=== PATIENT | male | born 1955 | race Caucasian/White ===

== ENCOUNTER 2020-10-21 11:18 | Outpatient (CLI) | payer BC, SELFPAY ==
[2020-10-21 11:57] LABS: Basophils Absolute Auto 0.1 K/mm3 (0.0-0.1); Basophils Percent Auto 0.9 % (0.2-1.2); Eosinophils Absolute Auto 0.4 K/mm3 (0-0.3); Eosinophils Percent Auto 5.4 % (0-4.4); Hematocrit 53.5 % (42.0-52.0); Hemoglobin 18.3 g/dL (14.0-18.0); Immature Granulocyte Absolute 0.05 K/mm3 (0.00-0.031); Immature Granulocyte Percent A 0.7 % (0-0.5); Lymphocytes Absolute Auto 1.47 K/mm3 (0.9-3.2); Mean Corpuscular HGB Conc 34.2 g/dl (32-36); Mean Corpuscular Hemoglobin 31.4 pg (26-34); Mean Corpuscular Volume 91.9 fl (80-100); Mean Platelet Volume 9.7 fl (7.4-10.4); Monocytes Percent Auto 14.1 % (2.6-8.5); Neutrophils Absolute Auto 4.1 K/mm3 (1.3-6.7); Neutrophils Percent Auto 57.9 % (45.5-73.1); Platelet Count Result 178 k/mm3 (150-375); Red Blood Count 5.82 M/mm3 (4.6-6.20); Red Cell Distribution Width 13.4 % (11.5-14.5)
[2020-10-21 12:10] LABS: Alanine Aminotransferase 27 U/L (4-50); Albumin Level 4.4 g/dL (3.5-5.1); Alkaline Phosphatase 91 U/L (38-126); Amylase 99 U/L (30-110); Anion Gap 11 mmol/L (8-16); Aspartate Amino Transferase 28 U/L (17-59); Bilirubin,Total 2.1 mg/dL (0.2-1.3); Blood Urea Nitrogen 40 mg/dL (9-20); Calcium 9.7 mg/dL (8.4-10.2); Carbon Dioxide 25 mmol/L (22-30); Chloride 101 mmol/L (98-107); Estimated Glomerular Filt Rate > 60; Glucose 336 mg/dL (75-110); Lipase 463 U/L (23-300); Sodium 137 mmol/L (137-145)
== END 2020-10-21 11:19 | disposition home or self-care (01) ==
LOC: ANHSURGERY 11:20
PROVIDERS: PCP Family Medicine; Visit Provider Surgery
DX: Z01.818 Encounter for other preprocedural examination (principal); K80.10 Calculus of gallbladder with chronic cholecystitis without obstruction
CPT/HCPCS: 36415; 80053; 82150; 82248; 83690; 85025

== ENCOUNTER 2020-10-25 01:14 | Outpatient (CLI) | payer BC, SELFPAY ==
[2020-10-25 18:31] LABS: SARS-CoV-2 RNA PCR Negative
== END 2020-10-25 01:15 | disposition home or self-care (01) ==
LOC: ANHCOVIDDT 01:14
PROVIDERS: PCP Family Medicine; Visit Provider Surgery
DX: Z01.812 Encounter for preprocedural laboratory examination (principal); Z20.828 Contact with and (suspected) exposure to other viral communicable diseases
CPT/HCPCS: 87635; C9803; U0003

== ENCOUNTER 2020-10-28 05:15 | Day surgery (SDC) | payer BC, SELFPAY ==
[2020-10-14 14:07] VITALS: BMI 34.4
[2020-10-28] VITALS (8 sets, daily range): BP systolic 103–155; BP diastolic 72–101; PULSE 70–78; RESP 16–32; TEMP 36.1–36.5; O2SAT 92–97
[2020-10-28] MEDS: ACETAMINOPHEN 500 MG TABLET 1000 MG PO (09:02)
[2020-10-28 09:18] LABS: Glucose Point of Care 142 (65-105)
[2020-10-28] MEDS: LACTATED RINGERS 1,000 ML 30 ML IV CONT ×2 (09:19→13:30)
[2020-10-28] MEDS: KETOROLAC 15 MG/ML VIAL (*BKC) IV PUSH (09:20)
--- NOTE | 2020-10-28 10:07 | WPDANESEPPF ---
Anes - Initial Pre Proc Eval Procedure: Operation Date: 10/28/20 11:00 Proposed Procedures p Laparoscopic Cholecystectomy, Possible Intraoperative Cholangiogram, Possible Open - Uche Siddiqui MD Date/Time: 10/28/20 10:07 Surgeon: Uche Siddiqui MD Pre Op Diagnosis: Chronic Cholecystitis With Cholelithiasis Patient Data Age: 65 Gender: M Height: 5 ft 10 in Weight: 105.2 kg Last Vital Signs Temp 36.1 C L 10/28/20 09:25 Pulse 71 10/28/20 09:25 Resp 16 10/28/20 09:25 BP 106/79 10/28/20 09:25 Pulse Ox 93 10/28/20 09:25 Allergies Allergy/AdvReac Type Severity Reaction Status Date / Time No Known Allergies Allergy Verified 10/28/20 08:53 Home Medications Medication Instructions Recorded Confirmed Type allopurinol 100 mg tablet 100 mg PO DAILY 11/05/19 10/28/20 History aspirin 81 mg tablet,delayed 81 mg PO DAILY 11/05/19 10/28/20 History release sacubitril 24 mg-valsartan 26 mg 1 tablet PO BID 11/05/19 10/28/20 History tablet sitagliptin 100 mg tablet 100 mg PO DAILY #30 tablet 05/05/20 10/28/20 Rx apixaban 5 mg tablet 5 mg PO BID 05/28/20 10/28/20 History atorvastatin 10 mg tablet 10 mg PO DAILY #90 tablet 05/28/20 10/28/20 Rx levothyroxine 75 mcg tablet 75 mcg PO DAILY #30 tablet 08/20/20 10/28/20 Rx carvedilol 12.5 mg tablet 25 mg PO Q12H tablet 10/09/20 10/28/20 History metformin 500 mg tablet 1,000 mg PO BID #60 tablet 10/09/20 10/28/20 Rx ergocalciferol (vitamin D2) 50,000 unit PO WEEKLY 10/14/20 10/28/20 History Laboratory Tests 10/28/20 09:09 POC Capillary Glucose 142 mg/dl H mg/dl (65-105) Patient hx anesthesia problems: none Family hx anesthesia problems: none PMFSH Past Medical History Medical History A-fib Acquired hypothyroidism CAD (coronary artery disease) CHF (congestive heart failure) CKD (chronic kidney disease) Gout HLD (hyperlipidemia) HTN (hypertension) Type 2 diabetes mellitus with other diabetic kidney complication Surgical History Surgical History History of two vessel coronary artery bypass graft Family History Family History Father Patient's father is , Onset Age: 72 Family history of cardiovascular disease Mother Family history of arthritis Family history of Alzheimer's disease Sibling Family history of cardiovascular disease Social History Social History Smoking packs per day: 1 Smoking cigarettes per day: 20.0 Years smoked: 20 Smoking pack-years: 20.00 Smoking status: Former smoker Tobacco type: cigarettes Smoking end date: 11/28/11 Alcohol intake: never Substance use: never Substance use type: marijuana Last use: 2011 Living arrangements: alone Additional occupation/education comments: [employer] Gender identity (if verbalized by the patient): Male Sexual Orientation (if Verbalized by the Patient): Straight or Heterosexual Spiritual care concerns: No Anes - Eval Final PreProcedure Day of Procedure 10/28/20 10:07 Patient weight: obese Heart: regular rate and rhythm Lungs: clear to auscultation Airway: Mallampati scale class II Neurological: alert and oriented Last oral intake: >/= 8 hours Anesthetic plan: proceed Anesthesia type and monitoring: general ETT and standard monitoring Informed Consent: The patient's anesthetic plan and its attendant risks and benefits were discussed with the patient/family/POA. Questions were solicited and answers provided to the satisfaction of the patient/family/POA.
--- NOTE | 2020-10-28 11:11 | WPDHPUPDATE1 ---
History and Physical Update Update Date/Time: 10/28/20 11:11 History and Physical has been reviewed, including an updated exam of the patient. There are NO changes in the patient's condition. Risks, benefits, and alternatives have been discussed and questions answered. Patient agrees to proceed with procedure.
--- NOTE | 2020-10-28 11:15 | SUR.PREOP ---
Up to bathroom.
[2020-10-28] MEDS: ceFAZolin 2 GM/D5W 50 ML 2 GM/50 ML BAG IVPB (11:40)
[2020-10-28 14:00] LABS: Glucose Point of Care 189 (65-105)
--- NOTE | 2020-10-28 14:08 | PM.PROC ---
Procedure Note - Detailed Date of procedure: 10/28/20 Pre-op diagnosis: Chronic Cholecystitis With Cholelithiasis Chronic Cholecystitis with Cholelithiasis Post-op diagnosis: same Procedure performed: Laparoscopic Cholecystectomy Description of procedure: Patient was seen preoperatively in the holding area and risks, benefits and alternatives confirmed. Patient was taken to the operating room and general anesthesia was induced. A time out was then preformed with the surgery team confirming patient and site of surgery. The abdomen was prepped and draped in the usual sterile fashion. Incision was made just below the umbilicus with an 11 blade knife. I placed 2 stay sutures of O- Vicryl on either side of the mid-line fascia beneath the umbilicus and was then able to slide in the Tang cannula through the fascial defect into the peritoneum. First under low flow and then under high flow the abdomen was insufflated with carbon dioxide never exceeding a pressure of 14. Three 5 mm trocars were then introduced under direct vision. The following trocars were introduced under direct vision: a 5 mm in the epigastrium and two 5 mm trocars along the right costal margin laterally in the subcostal area. There wer no significant adhesions to the underside of the gallbladder. I then carefully used the L-shaped cautery and the [place] dissector to dissect out the triangle of [place]. I then was able to dissect out both the cystic duct and cystic artery and identify a window of safety. The gall bladder was grasped and the cystic duct and artery were dissected free and clipped with an 5 mm endo-clip well logger. The cystic duct and artery were clipped with use of 2 clips on the patient's side 1 on the gallbladder side utilizing a 5 mm endoclip-well logger. The cystic duct was then transected. The cystic artery was also transected at this point. As we dissected of the back Sal[place]o gallbladder a posterior branch of the cystic artery was identified and 2 clips placed on this and the artery DIS cut between them. 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 Upon removal of the gallbladder from the abdomen I also placed a long silk suture next to this marking the abnormal lesion. The gall bladder was removed using electrocautery and then removed from the abdomen using a large 10 mm grasper via the umbilical incision. In order to get the large stone out of the abdomen within the gallbladder I did make the fascial defect slightly larger with Powers scissors. The trocars were removed visualizing hemostasis and the remaining gas evacuated. The large trocar site at the umbilicus was closed with use of the 2 stay sutures of 0 Vicryl mentioned above and also 2 figure of 8 O-Vicryl sutures. The 2 stay sutures mentioned above on either side of the fascia were also tied together to help approximate this midline fascia. Further local anesthetic was placed into each incision for postop pain control. The skin incisions were closed with subcuticular suture of 4-0 Monocryl. Surgical glue then was applied to all the incisions. Patient tolerated the procedure well was taken to the recovery room in good condition. Anesthesia: SUKUMAR Surgeon: Uche Siddiqui MD Extractor Puller: Esther WYATT, OR hearing and speech assistant Estimated blood loss (mL): 30 Drains: No Packing: No Pathology: yes (Gallbladder) Complications: No immediate complications Condition: stable Disposition: PACU Findings: Large non inflamed gallbladder with an apparent 1 cm rounded nodule at its upper end along the liver margin to the medial side of the gallbladder.
== END 2020-10-28 15:30 | disposition home or self-care (01) ==
PROVIDERS: PCP Family Medicine; Visit Provider Surgery
PROC: 0FT44ZZ Resection of Gallbladder, Percutaneous Endoscopic Approach (ICD-10-PCS; CPT 47562; principal; 2020-10-28 11:00)
DX: K80.10 Calculus of gallbladder with chronic cholecystitis without obstruction (principal); D13.5 Benign neoplasm of extrahepatic bile ducts; I48.91 Unspecified atrial fibrillation; E03.9 Hypothyroidism, unspecified; I25.10 Atherosclerotic heart disease of native coronary artery without angina pectoris; I13.0 Hypertensive heart and chronic kidney disease with heart failure and stage 1 through stage 4 chronic kidney disease, or unspecified chronic kidney disease; N18.9 Chronic kidney disease, unspecified; E11.22 Type 2 diabetes mellitus with diabetic chronic kidney disease; I50.9 Heart failure, unspecified; E78.5 Hyperlipidemia, unspecified; M10.9 Gout, unspecified; Z79.01 Long term (current) use of anticoagulants; Z79.84 Long term (current) use of oral hypoglycemic drugs; Z95.1 Presence of aortocoronary bypass graft; Z87.891 Personal history of nicotine dependence; E66.9 Obesity, unspecified; Z68.33 Body mass index [BMI] 33.0-33.9, adult
CPT/HCPCS: 47562; 88304; A9270; J0690; J1100; J1885; J2250; J2370; J2405; J2704; J3010; J7120; Q9966

== ENCOUNTER → 2021-07-03 07:12 | Outpatient (CLI) | payer BC, SELFPAY ==
[2021-07-04 00:14] LABS: SARS-CoV-2 RNA PCR Negative
== END ==
PROVIDERS: PCP Family Medicine; Visit Provider Physician Assistant
DX: Z20.822 Contact with and (suspected) exposure to COVID-19 (principal); R05 Cough
CPT/HCPCS: C9803; U0003; U0005

== ENCOUNTER 2022-08-23 00:16 | Day surgery (SDC) | payer MEDICARE, SELFPAY ==
[2022-08-20 14:16] VITALS: BMI 36.3
[2022-08-23] VITALS (9 sets, daily range): BP systolic 90–107; BP diastolic 68–89; PULSE 76–107; RESP 16–34; TEMP 36.8; O2SAT 91–95; BMI 34.3
--- NOTE | 2022-08-23 | ECHO_ITS ---
Patient Info Name: Lance Gray Age: 67 years : 1955 Gender: Male Ht: 70 in Wt: 239 lbs BSA: 2.35 m2 HR: 96 bpm Heart Rhythm: Sinus Rhythm Exam Date: 08/23/2022 8:12 AM Exam Location: [facility] Patient Status: Outpatient Admit Date: 08/23/2022 Staff Ordering Physician: Cornell Wild MD Christmas Tree Farm Manager: ALEX Attending Provider: Cornell Wild MD Referring Physician: Junito ALLEN; Exam Type: CA echo transesophageal Study Info Indications I48.1 - Persistent atrial fibrillation Complete two-dimensional, color flow and Doppler transesophageal study is performed. Summary 1. Esophageal ECHO performed prior to cardioversion shows no evidence of left atrial thrombus. 2. Four-chamber dilation with significantly depressed left ventricular systolic function. Left Ventricle Left ventricular chamber dimension is moderately enlarged. Left ventricular systolic function is severely reduced with an ejection fraction by Biplane Method of Discs of Empty. Right Ventricle Right ventricular chamber dimension is moderately enlarged. Left Atria Left atrial chamber dimension is moderately enlarged. There is no thrombus visualized in the left atrium. Right Atria Right atrial chamber dimension is severely enlarged. Atrial Appendage There is no thrombus visualized in the left atrial appendage. Aortic Valve The aortic valve is not well visualized. Pulmonic Valve The pulmonic valve is not well visualized. Mitral Valve The mitral valve has normal leaflets. Tricuspid Valve The tricuspid valve leaflets are normal. Pericardium/Pleural The pericardium appears normal. Inferior Vena Cava Not well visualized inferior vena cava with Empty collapse upon inspiration consistent with Empty right atrial pressure, Empty. Aorta The aortic root size at the sinus of Valsalva is not well visualized. Report Signatures
--- NOTE | 2022-08-23 07:00 | ECG_ITS ---
Measurements Intervals [place] Rate: 84 P: 33 WA: 165 QRS: -29 QRSD: 146 T: -6 QT: 426 QTc: 504 Interpretive Statements SINUS RHYTHM ATRIAL PREMATURE COMPLEXES RIGHT BUNDLE BRANCH BLOCK INFERIOR INFARCT, AGE INDETERMINATE ABNORMAL ECG COMPARED TO ECG 08/23/2022 07:17:32 SINUS RHYTHM NOW PRESENT Electronically Signed On 08-23-2022 9:06:01 CDT by Ermias Martínez D.O.
[2022-08-23 07:47] LABS: Anion Gap 16 mmol/L (8-16); Blood Urea Nitrogen 27 mg/dL (9-20); Carbon Dioxide 19 mmol/L (22-30); Chloride 106 mmol/L (98-107); Estimated CRCL calculation 58 ml/min; Estimated Glomerular Filt Rate 51; Glucose 153 mg/dL (65-110); Magnesium 1.5 mg/dL (1.6-2.3); Potassium 4.4 mmol/L (3.4-5.0); Sodium 141 mmol/L (137-145)
--- NOTE | 2022-08-23 08:30 | ECG_ITS ---
Measurements Intervals [place] Rate: 107 P: OR: 0 QRS: -33 QRSD: 142 T: -11 QT: 393 QTc: 526 Interpretive Statements ATRIAL FLUTTER/TACHYCARDIA WITH RAPID VENTRICULAR RESPONSE LEFT AXIS DEVIATION RIGHT BUNDLE BRANCH BLOCK BASELINE ARTIFACT- I, II, AVR, AVL, AVF, V1 ABNORMAL ECG COMPARED TO ECG 06/29/2019 11:16:01 ATRIAL FLUTTER/TACHYCARDIA NOW PRESENT Electronically Signed On 08-23-2022 7:58:56 CDT by Ermias Martínez D.O.
--- NOTE | 2022-08-23 08:38 | WPDMODSED ---
Moderate Sedation Note-Pt Data Patient Data Diagnosis: Atrial flutter Coronary artery disease Left ventricular dysfunction Present Complaint: No complaints this morning Procedure to be performed/Plan: Cody/cardioversion Allergies Allergy/AdvReac Type Severity Reaction Status Date / Time No Known Allergies Allergy Verified 08/23/22 07:24 Home Medications Medication Instructions Recorded Confirmed Type allopurinol 100 mg tablet 100 mg PO DAILY 11/05/19 08/23/22 History aspirin 81 mg tablet,delayed 81 mg PO DAILY 11/05/19 08/23/22 History release (Adult Aspirin Regimen) sacubitril 24 mg-valsartan 26 mg 1 tablet PO BID 11/05/19 08/23/22 History tablet (Entresto) apixaban 5 mg tablet (Eliquis) 5 mg PO BID 05/28/20 08/23/22 History carvedilol 12.5 mg tablet 25 mg PO Q12H 10/09/20 08/23/22 History ergocalciferol (vitamin D2) 1,250 50,000 unit PO MONTHLY 10/14/20 08/23/22 History mcg (50,000 unit) capsule blood sugar diagnostic #100 ea 03/26/21 05/10/22 Rx blood sugar diagnostic (Contour #100 ea 03/27/21 05/10/22 Rx Next Test Strips) lancets #200 ea 03/27/21 05/10/22 Rx empagliflozin 25 mg tablet 25 mg PO DAILY #30 tabs 01/04/22 08/23/22 Rx levothyroxine 88 mcg tablet 88 mcg PO DAILY #90 tabs 01/04/22 08/23/22 Rx glipizide 5 mg tablet 5 mg PO BID #180 tabs 06/03/22 08/23/22 Rx metformin 1,000 mg tablet 1,000 mg PO BID #180 tabs 06/03/22 08/23/22 Rx sitagliptin 100 mg tablet (Januvia) 100 mg PO DAILY #30 tabs 07/05/22 08/23/22 Rx atorvastatin 10 mg tablet 10 mg PO DAILY 08/20/22 08/23/22 History Current Medications: Active Medications Sodium Chloride (Normal Saline Iv) 1,000 mls @ 30 mls/hr IV CONT .Q24H RAMÍREZ Sedation/Anesthesia: No previous sedation/anesthesia problems (including family history). [facility] Past Medical History Medical History A-fib Acquired hypothyroidism CAD (coronary artery disease) CHF (congestive heart failure) CKD (chronic kidney disease) Gout HLD (hyperlipidemia) HTN (hypertension) Obesity Type 2 diabetes mellitus with other diabetic kidney complication Surgical History Surgical History History of two vessel coronary artery bypass graft Hx laparoscopic cholecystectomy Family History Family History Father Patient's father is , Onset Age: 72 Family history of cardiovascular disease Mother Family history of arthritis Family history of Alzheimer's disease Sibling Family history of cardiovascular disease Social History Social History Smoking packs per day: 1 Smoking cigarettes per day: 20.0 Years smoked: 20 Smoking pack-years: 20.00 Smoking status: Former smoker Tobacco type: cigarettes Smoking end date: 11/28/11 Alcohol intake: never Substance use: former Substance use type: does not use Last use: 2011 Living arrangements: alone Additional occupation/education comments: [employer] Gender identity (if verbalized by the patient): Male Sexual Orientation (if Verbalized by the Patient): Straight or Heterosexual Spiritual care concerns: No Mod Sed Physical Exam Physical Exam Pre Procedural Exam: Normal: Nose, Neck, Throat, Airway, Lungs, Heart Size, Heart Rhythm (Atrial flutter), Neuro Exam and Extremities and Variation: Appearance (Obese white male no distress) and Heart Rate (Heart rate 115 and regular) Hours since solid foods: 12 Hours since liquid intake: 12 Mallampati Classification: class III Internal Medicine - PN: Obj Da Vital Signs Vital Signs: Vital Signs - 24 hr 08/23/22 07:30 Temperature 36.8 C Pulse Rate 107 H Respiratory Rate 20 Blood Pressure 106/89 Pulse Oximetry 92 Oxygen Delivery Room Air Meds/Results Medications: Active Medications Generic Name Dose Route Start Last Admin
--- NOTE | 2022-08-23 08:53 | WPDCARDPROC ---
Cardiac Cath Procedure Note Date of procedure:: 08/23/22 Performing physician:: Cornell Wild MD Indication:: Persistent atrial flutter Brief clinical history:: This is a 67-year-old man with coronary disease and left ventricular systolic dysfunction who has been in atrial flutter in a sustained fashion. Electrophysiology school plant consultant has recommended CODY/cardioversion Procedure Procedure performed:: Cody/cardiac Sedation/Medication given:: Propofol total dosage of 40 mg Estimated blood loss:: No blood loss Procedure note:: Patient was brought to the cardiac catheterization lab holding area in the postabsorptive state defibrillator patches were placed in the AP position. Oral up benzocaine was sprayed on the oropharynx for topical anesthesia. He then was sedated with a bolus of propofol 1 bolus of propofol 40 mg provided very good procedural sedation. Transesophageal echo probe was then placed and esophagus was easily intubated the a left atrium was inspected including the appendage the left atrium is moderately dilated there was no evidence of any thrombus in the atrium or the appendage. Following this the CODY probe was withdrawn and the patient was cardioverted with 200 joules in a synchronized fashion which restored normal sinus rhythm. Findings:: As above Conclusion:: Successful uncomplicated CODY/cardioversion after no left atrial thrombus was seen 200 joule synchronized shock x1 restored normal sinus rhythm. Cornell Wild MD [facility]
== END 2022-08-23 10:00 | disposition home or self-care (01) ==
PROVIDERS: PCP Family Medicine; Visit Provider Specialist
PROC: 5A2204Z Restoration of Cardiac Rhythm, Single (ICD-10-PCS; principal; 2022-08-23 08:30)
PROC: (CPT 93312; 2022-08-23 08:30)
DX: I48.19 Other persistent atrial fibrillation (principal); E03.9 Hypothyroidism, unspecified; I25.10 Atherosclerotic heart disease of native coronary artery without angina pectoris; I13.0 Hypertensive heart and chronic kidney disease with heart failure and stage 1 through stage 4 chronic kidney disease, or unspecified chronic kidney disease; I50.9 Heart failure, unspecified; E11.22 Type 2 diabetes mellitus with diabetic chronic kidney disease; N18.9 Chronic kidney disease, unspecified; M10.9 Gout, unspecified; E78.5 Hyperlipidemia, unspecified; Z79.82 Long term (current) use of aspirin; Z79.01 Long term (current) use of anticoagulants; Z79.84 Long term (current) use of oral hypoglycemic drugs; Z95.1 Presence of aortocoronary bypass graft; Z87.891 Personal history of nicotine dependence
CPT/HCPCS: 36415; 80048; 83735; 92960; 93312; 93320; 93325; J2704; J7030

== ENCOUNTER 2023-07-11 08:03 | Inpatient (IN) | payer MEDICARE, OTHER, SELFPAY ==
[2023-07-11] VITALS (60 sets, daily range): BP systolic 71–109; BP diastolic 54–79; PULSE 71–173; RESP 16–41; TEMP 36.2–36.8; O2SAT 4–95; BMI 33.6
--- NOTE | 2023-07-11 | ECHO_ITS ---
Patient Info Name: Lance Gray Age: 67 years : 1955 Gender: Male Ht: 70 in Wt: 234 lbs BSA: 2.32 m2 HR: 133 bpm BP: 92 / 65 mmHg Heart Rhythm: Sinus Rhythm Technical Quality: Fair Exam Date: 07/11/2023 3:31 PM Exam Location: [facility] Pul[facility] Exam Room: ICU8 Patient Status: Inpatient Admit Date: 07/11/2023 Staff Ordering Physician: Usama Chandler MD Farm Reporter: Lian Hernandez RDCS Attending Provider: Ramsey Tee MD Referring Physician: Ramesh PINTO; Exam Type: CA echo dop color flow w con Study Info Indications - CAD CABG AFIB RVR CHF Complete two-dimensional, color flow and Doppler transthoracic echocardiogram is performed with contrast to opacify the left ventricle and to improve the deliniation of the left ventricle endocardial borders. Contrast/Agitated Saline Contrast/Ag. Saline: Definity Amount: 2.00 ml Administered By: Lian Hernandez [facility] Existing IV Access: Yes IV Access Condition: patent with no signs of infiltration Summary 1. Technically difficult exam, definity contrast used to improve visualization. 2. Four-chamber cardiac dilation. 3. Severe left ventricular systolic dysfunction. 4. Severe right ventricular systolic dysfunction. 5. Biatrial dilation. 6. Mild MR. 7. [id number] tricuspid regurgitation. Left Ventricle Left ventricular chamber dimension is moderately enlarged. Left ventricular systolic function is severely reduced, estimated at 20-25%. The left ventricular diastolic function is grade I diastolic dysfunction. Right Ventricle Right ventricular chamber dimension is moderately enlarged. Right ventricular systolic function is reduced. Left Atria Left atrial chamber dimension is moderately enlarged. Right Atria Right atrial chamber dimension is moderately enlarged. Aortic Valve The aortic valve is normal. Pulmonic Valve The pulmonic valve is not well visualized. Mitral Valve The mitral valve has normal leaflets. There is mild mitral valve regurgitation. Tricuspid Valve The tricuspid valve leaflets are normal. There is mild to moderate tricuspid valve regurgitation. Pericardium/Pleural The pericardium appears normal. Aorta The aortic root size at the sinus of Valsalva is normal. Left Ventricular Outflow Tract Name Value Normal LVOT 2D LVOT Diameter 2.08 cm LVOT Doppler LVOT Peak Gradient 1 mmHg LVOT Mean Gradient 1 mmHg LVOT VTI 9.30 cm LVOT VTI/AV VTI Ratio 0.84 LVOT Stroke Volume 31.65 ml Pulmonic Valve Name Value Normal PV Doppler PV Peak Gradient 1 mmHg Mitral Valve Name Value Normal
--- NOTE | ~2023-07-11 | XR_ITS ---
EXAMINATION: XR chest 1V portable INDICATION: Shortness of breath TECHNIQUE: Portable AP chest at 0843 hours COMPARISON: 06/27/2019 FINDINGS: Cardiomegaly is noted. There is a mild diffuse interstitial pattern. Small pleural effusion s are suggested. There is no pneumothorax. Median sternotomy wires are consistent with prior cardiac surgery. IMPRESSION: 1. Cardiomegaly with mild pulmonary edema. 2. Probable small pleural effusions. Reviewed, dictated and finalized at location B.
--- NOTE | ~2023-07-11 | US_ITS ---
EXAMINATION: US renal BI DATE: 07/12/2023 10:50 INDICATION: Acute renal insufficiency TECHNIQUE: Multiple ultrasound grayscale images of the kidneys were obtained. COMPARISON: CT dated 05/17/2019 FINDINGS: The right kidney measures 10.5 x 6.8 x 5.7 exclusive of a simple appearing anechoic 8.2 cm exophytic cyst arising from the upper pole. There is an additional smaller 1.7 cm cyst at the lower pole. The l eft kidney measures 10.9 x 7.3 x 5.4 cm. The kidneys demonstrate normal echogenicity. There are coupl e additional anechoic left renal cysts measuring 3.5 similar and 1.8 cm in maximal diameters. There i s no hydronephrosis in either kidney. No stones identified. The bladder is normal with bilateral ure teral jets visualized on color Doppler. IMPRESSION: 1. Bilateral renal cysts. Otherwise normal kidneys without hydronephrosis. Reviewed, dictated and finalized at location A.
--- NOTE | ~2023-07-11 | XR_ITS ---
EXAMINATION: XR chest 1V portable DATE: 07/12/2023 05:30 INDICATION: Pulmonary edema. TECHNIQUE: A single frontal view of the chest was obtained. COMPARISON: Chest single view 07/11/2023, chest CT 05/17/2019 FINDINGS: There is an interstitial pattern in the lungs. There are airspace opacities in left midlung zone. No pleural effusion or pneumothorax. Cardiomegaly is noted. Median sternotomy wires are noted. IMPRESSION: 1. Diffuse lung disease, likely mild pulmonary edema and left-sided atelectasis versus pneumonia. 2. Cardiomegaly. Reviewed, dictated and finalized at location A.
--- NOTE | ~2023-07-11 | XR_ITS ---
EXAMINATION: XR chest 2V DATE: 07/14/2023 11:24 INDICATION: Shortness of breath TECHNIQUE: AP and lateral views of the chest are obtained. COMPARISON: 07/12/2023 FINDINGS: Diffuse interstitial opacities persist with slight improvement. No pleural effusion or pneu mothorax. Cardiomegaly is noted. There is mild thoracic spondylosis. Median sternotomy wires , consis tent with prior cardiac surgery IMPRESSION: 1. Diffuse lung disease with slight improvement, likely pulmonary edema versus pneumonia. 2. Cardiomegaly. Reviewed, dictated and finalized at location L.
--- NOTE | 2023-07-11 08:19 | ECG_ITS ---
Measurements Intervals [place] Rate: 89 P: PA: 0 QRS: -10 QRSD: 144 T: 76 QT: 431 QTc: 527 Interpretive Statements ATYPICAL/SLOW ATRIAL TACHYCARDIA VERSES SLOW ATRIAL FLUTTER WITH TWO-TO-ONE CONDUCTION. OCCASIONAL PVC INDETERMINATE AXIS RIGHT BUNDLE BRANCH BLOCK [120+ ms QRS DURATION, UPRIGHT V1, 40+ ms S IN I/aVL/V4/V5/V6] COMPARED TO ECG 08/23/2022 09:03:18 SINUS RHYTHM IS REPLACED BY ECTOPIC ATRIAL TACHYCARDIA/SLOW ATRIAL FLUTTER Electronically Signed On 07-11-2023 16:59:44 CDT by Cornell Wild M.D.
--- NOTE | 2023-07-11 08:31 | PC.NURSE ---
Pt noted to be in vtach on classroom monitor. Pt is asymptomatic.
--- NOTE | 2023-07-11 08:43 | PC.NURSE ---
0831: library monitor displaying VTach. Pt denies any chest pain. Dr. Phillips informed
[2023-07-11 08:44] LABS: Basophils Absolute Auto 0.1 K/mm3 (0.0-0.1); Basophils Percent Auto 1.1 % (0.2-1.2); Eosinophils Absolute Auto 0.3 K/mm3 (0-0.3); Eosinophils Percent Auto 5.2 % (0-4.4); Hematocrit 46.6 % (42.0-52.0); Hemoglobin 15.3 g/dL (14.0-18.0); Immature Granulocyte Absolute 0.03 K/mm3 (0.00-0.031); Immature Granulocyte Percent A 0.5 % (0-0.5); Lymphocytes Absolute Auto 0.97 K/mm3 (0.9-3.2); Lymphocytes Percent Auto 17.5 % (18.3-44.2); Mean Corpuscular HGB Conc 32.8 g/dl (32-36); Mean Corpuscular Hemoglobin 33.5 pg (26-34); Mean Platelet Volume 10.5 fl (7.4-10.4); Monocytes Absolute Auto 0.7 K/mm3 (0.1-0.6); Monocytes Percent Auto 12.3 % (2.6-8.5); Neutrophils Absolute Auto 3.5 K/mm3 (1.3-6.7); Neutrophils Percent Auto 63.4 % (45.5-73.1); Platelet Count Result 155 k/mm3 (150-375); Red Blood Count 4.57 M/mm3 (4.6-6.20); Red Cell Distribution Width 15.5 % (11.5-14.5); White Blood Count 5.5 K/mm3 (4.5-10.0)
[2023-07-11 08:55] LABS: Alanine Aminotransferase 19 U/L (6-50); Alkaline Phosphatase 94 U/L (38-126); Anion Gap 9 mmol/L (8-16); Aspartate Amino Transferase 24 U/L (17-59); Bilirubin,Total 2.3 mg/dL (0.2-1.3); Blood Urea Nitrogen 64 mg/dL (9-20); Calcium 8.8 mg/dL (8.4-10.2); Carbon Dioxide 18 mmol/L (22-30); Chloride 105 mmol/L (98-107); Estimated CRCL calculation 64 ml/min; Estimated Glomerular Filt Rate 32; Glucose 141 mg/dL (65-110); INR 2.1; Potassium 4.8 mmol/L (3.4-5.0); Prothrombin Time 24.6 Seconds (11.1-14.7); Sodium 132 mmol/L (137-145)
[2023-07-11 08:56] LABS: Partial Thromboplastin Time 35.9 SECONDS (22.3-36.8)
[2023-07-11 09:07] LABS: NT Pro B Type Natriuretic Pept 4850 pg/mL (19.9-100); Troponin I < 0.012 ng/mL (0.000-0.034)
[2023-07-11] MEDS: FUROSEMIDE INJ 40 MG/4 ML VIAL IV PUSH (09:21)
--- NOTE | 2023-07-11 09:22 | ED.SOB ---
HPI - SOB/Dyspnea General Chief Complaint: Shortness of Breath/Dyspnea Stated Complaint: sob for a couple weeks Time Seen by Provider: 07/11/23 08:10 History of Present Illness HPI Narrative: Patient is a 67-year-old male who presents ER with shortness of breath. Ongoing for 2 weeks. Patient was barely able to walk from parking lot to the hospital. Denies chest pain or chest pressure. He is short of breath with laying down. Has history of heart failure. He reports compliance with home medications and took his carvedilol this morning. Denies any dizziness or loss consciousness. Had no fevers or chills. Related Data Home Medications Medication Instructions Recorded Confirmed aspirin 81 mg tablet,delayed 81 mg PO DAILY 11/05/19 07/11/23 release (Adult Aspirin Regimen) apixaban 5 mg tablet (Eliquis) 5 mg PO BID 05/28/20 07/11/23 ergocalciferol (vitamin D2) 1,250 50,000 unit PO MONTHLY 10/14/20 07/11/23 mcg (50,000 unit) capsule allopurinol 100 mg tablet 200 mg PO HS 05/05/23 07/11/23 atorvastatin 10 mg tablet 10 mg PO HS 07/11/23 07/11/23 carvedilol 25 mg tablet 25 mg PO Q12H 07/11/23 07/11/23 sacubitril 49 mg-valsartan 51 mg 1 tablet PO BID 07/11/23 07/11/23 tablet (Entresto) sitagliptin phosphate 100 mg 100 mg PO DAILY 07/11/23 07/11/23 tablet (Januvia) Allergies Allergy/AdvReac Type Severity Reaction Status Date / Time No Known Allergies Allergy Verified 05/05/23 14:59 Review of Systems Review of Systems: All systems reviewed & are unremarkable except as noted in HPI and below Constitutional: Constitutional: Denies chills and Denies fever(s) ENT: Denies nasal congestion and Denies sore throat Cardiovascular: Cardiovascular: Denies chest pain, Denies rapid heart rate and Denies radiating jaw, neck or arm pain Respiratory: Respiratory: Reports cough and Reports dyspnea Gastrointestinal: Gastrointestinal: Denies abdominal pain, Denies nausea and Denies vomiting PMFSH Past Medical History Medical History Acquired hypothyroidism Chronic anticoagulation Chronic kidney disease Gout Heart failure with reduced ejection fraction Hyperlipidemia Hypertension Obesity Paroxysmal atrial fibrillation Shingles Type 2 diabetes mellitus Type 2 diabetes mellitus with other diabetic kidney complication Surgical History Surgical History History of laparoscopic cholecystectomy (2020) History of two vessel coronary artery bypass graft Family History Family History Father Family history of cardiovascular disease Patient's father is , Onset Age: 72 Mother Family history of arthritis Family history of Alzheimer's disease Sibling Family history of cardiovascular disease Parkinsons disease Social History Social History Social History: Surrogate medical decision maker: Padmaja Gray, sister. Code status: Full code. Smoking packs per day: 1 Smoking cigarettes per day: 20.0 Years smoked: 20 Smoking pack-years: 20.00 Smoking status: Former smoker Tobacco type: cigarettes Smoking end date: 11/28/11 Alcohol intake: never Substance use: never Substance use type: does not use Last use: 2011 Lack of Transportation: No Lack of Food: Never True Current Housing: I Have Housing Concerned About Future Housing: No Difficulty Paying Gas/Electric Bills: No Difficulty Paying for Meds: No Currently Unemployed: No Education: High School Diploma/GED Difficulty w/ Childcare or Family Care: No Living arrangements: alone Occupation/Education: occupation Additional occupation/education comments: [employer] Spiritual care concerns: Yes ([facility] in [place], [place]) Exam Narrative: GENERAL: Chronically ill-appearing, well-n
--- NOTE | 2023-07-11 09:56 | PC.NURSE ---
Pt continues to have episodes of asymptomatic VTach. Dr. Phillips aware of hypotension.
[2023-07-11] MEDS: AMIODARONE 150 MG/D5W 100 ML 150 MG/100 ML BAG 600 MG IV CONT (10:06)
[2023-07-11] MEDS: AMIODARONE 360 MG/D5W 200 ML 360 MG/200 ML BAG 33.33 MG IV CONT ×3 (10:24→22:45)
--- NOTE | 2023-07-11 11:10 | PC.NURSE ---
Report received via telephone at 1042 per YOSELIN Sharma. All questions answered and plan of care reviewed. Patient to go to ICU room 8.
--- NOTE | 2023-07-11 11:12 | ADMGEN ---
This patient, Lance Gray, was admitted to Intensive Care Unit-8 at 1102. Patient/family oriented to hospital policies and general routines including ID bracelet, bed and alarms, visiting hours, pain management, procedures, bathroom and other care routines, personal items, smoking policy, room service/diet, and visiting hours. Information on how to activate the Rapid Response Team has been discussed. Patient/Family are encouraged to report perceived risks to care and to ask questions if they do not understand what they are told or what they should do.
--- NOTE | 2023-07-11 12:33 | WPDCNINT ---
Assessment and Plan Assessment and plan (1) A-fib: Code(s): I48.91 - Unspecified atrial fibrillation Status: Acute Assessment and Plan: 07/11: Patient presented to the ER with Sinus tachycardia to AFib RVR with increasing shortness of breath. Chest x-ray showed pulmonary edema, elevated proBNP -started on amiodarone bolus and amiodarone infusion infusion -cardiology has been consulted -patient has been on Eliquis at home, will continue -patient has had history of cardioversion for similar symptoms in the past -will discuss with Cardiology regarding cardioversion if patient is persistently tachycardic (2) CHF (congestive heart failure): Code(s): I50.9 - Heart failure, unspecified Status: Acute Assessment and Plan: Chest x-ray shows phone edema, elevated proBNP -received Lasix in the ER -patient has not had any urine output -continues to require supplemental oxygen -will hold Entresto and Coreg due to borderline blood pressures -will diurese as needed (3) Acute kidney injury superimposed on chronic kidney disease: Code(s): N17.9 - Acute kidney failure, unspecified; N18.9 - Chronic kidney disease, unspecified Status: Acute Assessment and Plan: Acute kidney injury most likely related to volume overload, he AFib RVR/sinus tachycardia/SVT -patient has received Lasix in the ER -will monitor urine output, renal function remained electrolyte (4) DM renal manif type II: Code(s): E11.29 - Type 2 diabetes mellitus with other diabetic kidney complication Status: Acute Assessment and Plan: Will add Accu-Cheks and sliding scale insulin (5) HTN (hypertension): Code(s): I10 - Essential (primary) hypertension Status: Acute Assessment and Plan: Blood pressures are borderline, will continue to hold antihypertensive (6) HLD (hyperlipidemia): Code(s): E78.5 - Hyperlipidemia, unspecified Status: Acute Assessment and Plan: Continue statin (7) Hypothyroidism: Code(s): E03.9 - Hypothyroidism, unspecified Status: Acute Assessment and Plan: Will continue levothyroxine Plan DVT prophylaxis: Eliquis Stress ulcer prophylaxis: Not indicated Nutrition: Heart healthy diet Code Status: Full code Critical Care Time Spent: 48 minutes I did discuss with the patient and updated with his condition and plan of care, I answered all questions Due to a high probability of clinically significant, life threatening deterioration, the patient required my highest level of preparedness to intervene emergently and I personally spent this critical care time directly and personally managing the patient. This critical care time included obtaining a history; examining the patient; pulse oximetry; ordering and review of studies; arranging urgent treatment with development of a management plan; evaluation of patient's response to treatment; frequent reassessment; and discussions with other providers. It was exclusive of separately billable procedures and treating other patients and teaching time. Please see Assessment and Plan section and the rest of the note for further information on patient assessment and treatment This dictation may have been done utilizing a voice recognition system. Attempts have been made to correct errors. However, there may be uncorrected grammatical, spelling, and recognitions errors present. Stem Setter Consult Note Consult date: 07/11/23 Reason for consult: Shortness of breath, palpitations, sinus tachycardia/SVT HPI: Lance Gray is a 67 year old male with past medical history of atrial fibrillation on Eliquis at home, hypothyroidism, CHF, chronic kidney disease, coronary artery disease, CABG x2, hyperlipidemia, essential hypertension, type 2 diabetes, gout presented the ED on 07/11/2023 with complains of increasing shortness of breath and palpitations for 7-10 days. Patient states that he was morning is back ad
--- NOTE | 2023-07-11 14:20 | PM.CNCAR ---
Assessment and Plan Assessment and plan (1) CHF (congestive heart failure): Code(s): I50.9 - Heart failure, unspecified Status: Acute Assessment and Plan: Acute on chronic systolic heart failure. Presents with progressive dyspnea on exertion and orthopnea. Continue diuresis with IV furosemide 40mg b.i.d. Daily weights Accurate intake and output Low Na diet Daily BMP while diuresing (2) Cardiomyopathy: Code(s): I42.9 - Cardiomyopathy, unspecified Status: Acute Assessment and Plan: EF 30% by echo in 2019. Repeat echo from today pending. Further recommendations to follow (3) CAD (coronary artery disease): Code(s): I25.10 - Atherosclerotic heart disease of [place] coronary artery without angina pectoris Status: Acute Assessment and Plan: Stable. Continue ASA, statin (4) Atrial fibrillation with rapid ventricular response: Code(s): I48.91 - Unspecified atrial fibrillation Status: Acute Assessment and Plan: On amiodarone gtt currently. NSR with intermittent AF with RVR. Continue coreg, continue Eliquis (5) Chronic kidney disease: Code(s): N18.9 - Chronic kidney disease, unspecified Status: Acute Assessment and Plan: JEANINE on CKD. Monitor renal function closely while diuresing. History of Present Illness History of Present Illness Consult date/time: 07/11/23 14:20 Requesting physician: Jovani Phillips MD Consult reason: congestive heart failure Reason For Visit: CHF Exacerbation/Palpitations/Hypoxia Narrative: Lance Gray is a 67-year-old male with coronary artery disease, history of inferior ST-elevation [place], status post CABG times to (right radial artery graft to the RPDA, SVG to OM 2 on 09/24/2013 close friend, type 2 diabetes mellitus, dyslipidemia, and renal insufficiency. He presents to the hospital now with a chief complaint of shortness of breath. He's had progressive dyspnea and orthopnea over the past couple of weeks. Denies any dietary changes or alterations to his medical regimen. Denies any chest pain, palpitations, syncope, pre-syncope. In emergency department was noted to be having intermittent episodes of atrial fib/flutter with RVR and was hypotensive. He has been given IV furosemide, placed on an amiodarone drip, and admitted to the ICU for further management. Review of Systems Review of Systems: All systems reviewed & are unremarkable except as noted in HPI and below PMFSH Past Medical History Medical History Acquired hypothyroidism Chronic anticoagulation Chronic kidney disease Gout Heart failure with reduced ejection fraction Hyperlipidemia Hypertension Obesity Paroxysmal atrial fibrillation Shingles Type 2 diabetes mellitus Type 2 diabetes mellitus with other diabetic kidney complication Surgical History Surgical History History of laparoscopic cholecystectomy (2020) History of two vessel coronary artery bypass graft Family History Family History Father Family history of cardiovascular disease Patient's father is , Onset Age: 72 Mother Family history of arthritis Family history of Alzheimer's disease Sibling Family history of cardiovascular disease Parkinsons disease Social History Social History Social History: Surrogate medical decision maker: Padmaja Hooverbin, sister. Code status: Full code. Smoking packs per day: 1 Smoking cigarettes per day: 20.0 Years smoked: 20 Smoking pack-years: 20.00 Smoking status: Former smoker Tobacco type: cigarettes Smoking end date: 11/28/11 Alcohol intake: never Substance use: never Substance use type: does not use Last use: 2011 Lack of Transportation: No Lack of Food: Never True
--- NOTE | 2023-07-11 14:40 | PM.IMHP ---
H&P: HPI History of Present Illness Date/Time: 07/11/23 14:40 Chief Complaint: Shortness of breath. Narrative: This is a 67-year-old male with coronary artery disease status post 2 vessel CABG at [facility] in 2012, paroxysmal atrial fibrillation and flutter, heart failure with reduced ejection fraction, hypertension, type 2 diabetes mellitus, and hypothyroidism who presented to the emergency department via private vehicle from home for evaluation of shortness of breath. The patient provides the following history. He reports increasing shortness of breath on lesser and lesser exertion for the past several weeks. 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 He also endorses orthopnea, cough productive of clear phlegm, and mild lower extremity edema. Today he started to feel lightheaded and dizzy, mainly with position changes and with walking. He denies fever, chills, sweats, cold and flu symptoms, chest pain, pleuritic pain, palpitations, nausea, and vomiting. In the ED: He was found to be in atrial fibrillation with rapid ventricular response and rates up to 173 beats per minute on arrival. Blood pressures were in the 80s to 90s systolic. SpO2 was as low as 87 % on room air. He received a dose of IV furosemide 40 mg and was started on amiodarone drip with improvement in his rate. He is being admitted to the ICU in this setting for close monitoring. At the time my evaluation he is feeling better and less short of breath and has no current complaints. Review of Systems Review of Systems: Twelve systems were reviewed and are negative except for as per HPI. [facility] Past Medical History Medical History Acquired hypothyroidism Chronic anticoagulation Chronic kidney disease Gout Heart failure with reduced ejection fraction Hyperlipidemia Hypertension Obesity Paroxysmal atrial fibrillation Shingles Type 2 diabetes mellitus Type 2 diabetes mellitus with other diabetic kidney complication Surgical History Surgical History History of laparoscopic cholecystectomy (2020) History of two vessel coronary artery bypass graft Family History Family History Father Family history of cardiovascular disease Patient's father is , Onset Age: 72 Mother Family history of arthritis Family history of Alzheimer's disease Sibling Family history of cardiovascular disease Parkinsons disease Social History Social History Social History: Surrogate medical decision maker: Padmaja Gray, sister. Code status: Full code. Smoking packs per day: 1 Smoking cigarettes per day: 20.0 Years smoked: 20 Smoking pack-years: 20.00 Smoking status: Former smoker Tobacco type: cigarettes Smoking end date: 11/28/11 Alcohol intake: never Substance use: never Substance use type: does not use Last use: 2011 Lack of Transportation: No Lack of Food: Never True Current Housing: I Have Housing Concerned About Future Housing: No Difficulty Paying Gas/Electric Bills: No Difficulty Paying for Meds: No Currently Unemployed: No Education: High School Diploma/GED Difficulty w/ Childcare or Family Care: No Living arrangements: alone Occupation/Education: occupation Additional occupation/education comments: [employer] Spiritual care concerns: Yes ([facility] in [place], [place]) Meds Home Medications and Allergies Home Medications Medication Instructions Recorded Confirmed Type aspirin 81 mg tablet,delayed 81 mg PO DAILY 11/05/19 07/11/23 History release (Adult Aspirin Regimen) apixaban 5 mg tablet (Eliquis) 5 mg PO BID 05/28/20 07/11/23 History ergocalciferol (vitamin D2) 1,250 50,000 unit PO MONTHLY
[2023-07-11] MEDS: PERFLUTREN LIPID MICROSPHERES 1.5 ML VIAL DILUTED TO 10 ML TOTAL VOLUME IV PUSH (15:00)
[2023-07-11] MEDS: ALBUMIN HUMAN 25% 25 GM/100 ML 100 ML IVPB ×2 (15:45→20:43)
[2023-07-11] MEDS: APIXABAN 5 MG TABLET PO (17:06)
[2023-07-11 17:11] LABS: Glucose Point of Care 145 mg/dl (65-105)
[2023-07-11 18:00] LABS: Anion Gap 16 mmol/L (8-16); Blood Urea Nitrogen 63 mg/dL (9-20); Calcium 8.9 mg/dL (8.4-10.2); Carbon Dioxide 16 mmol/L (22-30); Chloride 104 mmol/L (98-107); Estimated CRCL calculation 37 ml/min; Estimated Glomerular Filt Rate 30; Glucose 130 mg/dL (65-110); Magnesium 2.1 mg/dL (1.6-2.3); Potassium 4.8 mmol/L (3.4-5.0); Sodium 136 mmol/L (137-145)
--- NOTE | 2023-07-11 19:45 | PC.NURSE ---
[facility] flyer was given to patient.
[2023-07-11] MEDS: ATORVASTATIN 10 MG TABLET PO (20:43)
[2023-07-11] MEDS: LEVOTHYROXINE SODIUM 88 MCG TABLET PO (20:43)
[2023-07-11 21:39] LABS: Glucose Point of Care 130 mg/dl (65-105)
[2023-07-12] VITALS (20 sets, daily range): BP systolic 85–112; BP diastolic 58–96; PULSE 67–102; RESP 19–32; TEMP 36.4–36.7; O2SAT 89–97
[2023-07-12 04:31] LABS: Basophils Absolute Auto 0.1 K/mm3 (0.0-0.1); Eosinophils Absolute Auto 0.3 K/mm3 (0-0.3); Hemoglobin 14.6 g/dL (14.0-18.0); Immature Granulocyte Absolute 0.03 K/mm3 (0.00-0.031); Immature Granulocyte Percent A 0.5 % (0-0.5); Lymphocytes Absolute Auto 1.05 K/mm3 (0.9-3.2); Lymphocytes Percent Auto 16.7 % (18.3-44.2); Mean Corpuscular HGB Conc 32.4 g/dl (32-36); Mean Corpuscular Hemoglobin 33.3 pg (26-34); Mean Corpuscular Volume 102.5 fl (80-100); Mean Platelet Volume 10.5 fl (7.4-10.4); Monocytes Absolute Auto 0.7 K/mm3 (0.1-0.6); Monocytes Percent Auto 10.8 % (2.6-8.5); Neutrophils Absolute Auto 4.2 K/mm3 (1.3-6.7); Platelet Count Result 153 k/mm3 (150-375); Red Blood Count 4.39 M/mm3 (4.6-6.20); Red Cell Distribution Width 15.3 % (11.5-14.5); White Blood Count 6.3 K/mm3 (4.5-10.0)
[2023-07-12 04:40] LABS: Alanine Aminotransferase 18 U/L (6-50); Albumin Level 4.1 g/dL (3.5-5.1); Alkaline Phosphatase 82 U/L (38-126); Anion Gap 12 mmol/L (8-16); Aspartate Amino Transferase 22 U/L (17-59); Bilirubin,Total 1.9 mg/dL (0.2-1.3); Blood Urea Nitrogen 70 mg/dL (9-20); Calcium 8.6 mg/dL (8.4-10.2); Carbon Dioxide 21 mmol/L (22-30); Chloride 101 mmol/L (98-107); Estimated CRCL calculation 32 ml/min; Estimated Glomerular Filt Rate 25; Glucose 140 mg/dL (65-110); Potassium 5.1 mmol/L (3.4-5.0); Sodium 134 mmol/L (137-145)
[2023-07-12] MEDS: AMIODARONE 360 MG/D5W 200 ML 360 MG/200 ML BAG 33.3 MG (05:02)
[2023-07-12 05:54] LABS: Free T4 Free Thyroxine Reflex 1.74 ng/dL (0.78-2.19)
[2023-07-12] MEDS: LEVOTHYROXINE SODIUM 88 MCG TABLET PO (06:48)
[2023-07-12 06:56] LABS: Total Triiodothyronine (T3) 1.02 NG/ML (0.97-1.69)
[2023-07-12] MEDS: APIXABAN 5 MG TABLET PO ×2 (08:12→16:44)
[2023-07-12] MEDS: ASPIRIN 81 MG ENTERIC TABLET PO (08:12)
[2023-07-12] MEDS: FUROSEMIDE INJ 40 MG/4 ML VIAL IV PUSH ×2 (08:12→16:44)
[2023-07-12 08:19] LABS: Glucose Point of Care 137 mg/dl (65-105)
[2023-07-12] MEDS: SODIUM ZIRCONIUM CYCLOSILICATE 10 GM POWD.PACK PO (09:19)
--- NOTE | 2023-07-12 09:22 | WPDINTPN ---
Progress Note: A&P Assessment and Plan (1) A-fib: Code(s): I48.91 - Unspecified atrial fibrillation Status: Acute Assessment and Plan: 07/11: Patient presented to the ER with Sinus tachycardia to AFib RVR with increasing shortness of breath. Chest x-ray showed pulmonary edema, elevated proBNP -started on amiodarone bolus and amiodarone infusion infusion -cardiology has been consulted -patient has been on Eliquis at home, which has been continued -patient has had history of cardioversion for similar symptoms in the past (2) CHF (congestive heart failure): Code(s): I50.9 - Heart failure, unspecified Status: Acute Assessment and Plan: Chest x-ray shows pulmonary edema, elevated proBNP -continue Lasix -patient has not had any urine output -continues to require supplemental oxygen -will hold Entresto and Coreg due to borderline blood pressures (3) Acute kidney injury superimposed on chronic kidney disease: Code(s): N17.9 - Acute kidney failure, unspecified; N18.9 - Chronic kidney disease, unspecified Status: Acute Assessment and Plan: Acute kidney injury most likely related to congestive heart failure, hypotension, AFib RVR Patient receiving Lasix for volume overload Check renal ultrasound, CK Monitor urine output, renal function remained electrolyte (4) DM renal manif type II: Code(s): E11.29 - Type 2 diabetes mellitus with other diabetic kidney complication Status: Acute Assessment and Plan: Will add Accu-Cheks and sliding scale insulin (5) HTN (hypertension): Code(s): I10 - Essential (primary) hypertension Status: Acute Assessment and Plan: Blood pressures are borderline, will continue to hold antihypertensive (6) HLD (hyperlipidemia): Code(s): E78.5 - Hyperlipidemia, unspecified Status: Acute Assessment and Plan: Continue statin (7) Hypothyroidism: Code(s): E03.9 - Hypothyroidism, unspecified Status: Acute Assessment and Plan: Will continue levothyroxine (8) Epistaxis: Code(s): R04.0 - Epistaxis Status: Acute Assessment and Plan: Patient has history of recurrent epistaxis on the left side. Patient has nasal cannula and his oxygen is humidified. I will try switching to face mask and see if that helps (9) Hyperkalemia: Code(s): E87.5 - Hyperkalemia Status: Acute Assessment and Plan: K 5.1. Will order Lokelma Recheck BMP later in the day Plan DVT prophylaxis: Eliquis Stress ulcer prophylaxis: Patient on PPI Nutrition: Heart healthy diet Code Status: Full code Critical Care Time Spent: 38 minutes I did discuss with the patient and updated with his condition and plan of care, I answered all questions Due to a high probability of clinically significant, life threatening deterioration, the patient required my highest level of preparedness to intervene emergently and I personally spent this critical care time directly and personally managing the patient. This critical care time included obtaining a history; examining the patient; pulse oximetry; ordering and review of studies; arranging urgent treatment with development of a management plan; evaluation of patient's response to treatment; frequent reassessment; and discussions with other providers. It was exclusive of separately billable procedures and treating other patients and teaching time. Please see Assessment and Plan section and the rest of the note for further information on patient assessment and treatment This dictation may have been done utilizing a voice recognition system. Attempts have been made to correct errors. However, there may be uncorrected grammatical, spelling, and recognitions errors present. Subjective Date/time seen: 07/12/23 Overnight events reviewed. Afebrile On 6 L nasal cannula Urine output is low He states he feels or right denies any specific new complaint
[2023-07-12 10:12] LABS: Creatine Kinase 42 U/L (55-170)
[2023-07-12] MEDS: MIDODRINE HCL 2.5 MG TABLET 5 MG PO ×3 (10:29→16:44)
[2023-07-12] MEDS: AMIODARONE 360 MG/D5W 200 ML 360 MG/200 ML BAG 16.67 MG IV CONT ×2 (11:04→22:24)
[2023-07-12 11:48] LABS: Glucose Point of Care 177 mg/dl (65-105)
--- NOTE | 2023-07-12 12:01 | PM.PNCARD ---
Progress Note: A&P Assessment and Plan (1) Acute on chronic systolic congestive heart failure: Code(s): I50.23 - Acute on chronic systolic (congestive) heart failure Status: Acute Assessment and Plan: Acute on chronic systolic heart failure.? Presents with progressive dyspnea on exertion and orthopnea.? Continue diuresis with IV furosemide 40mg BID Daily weights Accurate intake and output Low Na diet Daily BMP while diuresing (2) Cardiomyopathy: Code(s): I42.9 - Cardiomyopathy, unspecified Status: Acute Assessment and Plan: EF 30% by echo in 2019.? Repeat echo this admission with LVEF 20-25%. His Coreg, Entresto are currently on hold due to hypotension on presentation. Will need to resume GDMT when blood pressures are better. (3) CAD (coronary artery disease): Code(s): I25.10 - Atherosclerotic heart disease of [place] coronary artery without angina pectoris Status: Acute Assessment and Plan: Continue ASA and statin (4) Atrial fibrillation with rapid ventricular response: Code(s): I48.91 - Unspecified atrial fibrillation Status: Acute Assessment and Plan: NSR with intermittent AF with RVR. Will plan to continue Amiodarone drip at 0.5 for another 24 hours. No plans for long-term Amiodarone therapy as patient used to be on Amiodarone in the past but it was discontinued due to elevated TSH. Continue Eliquis for anticoagulation. (5) Acute kidney injury superimposed on chronic kidney disease: Code(s): N17.9 - Acute kidney failure, unspecified; N18.9 - Chronic kidney disease, unspecified Status: Acute Assessment and Plan: Monitor renal function closely. Plan Recommendations/plan discussed with Billposting Supervisor. Subjective Date/time seen: 07/12/23 12:01 Interval history: Reason for visit: Acute on chronic heart failure exacerbation, atrial fibrillation HPI: Lance Gray is a 67-year-old male with coronary artery disease, history of inferior ST-elevation [place], status post CABG times 2 (right radial artery graft to the RPDA, SVG to OM 2 on 09/24/2013), type 2 diabetes mellitus, dyslipidemia, and renal insufficiency.? He presents to the hospital now with a chief complaint of shortness of breath.? He's had progressive dyspnea and orthopnea over the past couple of weeks.? Denies any dietary changes or alterations to his medical regimen.? Denies any chest pain, palpitations, syncope, pre-syncope.? In emergency department was noted to be having intermittent episodes of atrial fib/flutter with RVR and was hypotensive.? He has been given IV furosemide, placed on an amiodarone drip, and admitted to the ICU for further management.? Date of service 07/12: In sinus rhythm currently with frequent PACs. Patient reports that his breathing feels better this morning, is able to lay more flat than before. Made 650ccs of urine this morning thus far. Review of Systems Review of Systems: All systems reviewed & are unremarkable except as noted in HPI and below (HPI) Exam Const: General: comfortable and no acute distress HENMT: Other: Dried blood noted in nares. Nasal cannula in place. Eyes: Sclera: sclerae normal Neck: Neck: supple Resp: Effort & Inspection: normal respiratory effort Auscultation: diminished lung sounds Cardio: Rate: regular rate Rhythm: abnormal rhythm with ectopic beats Heart sounds: no murmurs Skin: General skin exam: normal color Neuro: Speech: normal speech Extrem: General: no edema Psych: Mental Status: mental status grossly normal Affect: normal affect Objective Data Vital Signs Vital Signs: Vital Signs - 24 hr 07/11/23 12:25 07/11/23 12:25 07/11/23 14:49 Temperature Pulse Rate 71 Respiratory Rate 23 H 24 H Blood Pressure 90/78 L Pulse Oximetry 88 L 91 Oxygen Delivery Nasal Cannula Nasal Cannula Oxygen Flow Rate 5 5 Fraction of Inspired Oxygen 07/11/23 14:00 07/11/23 14:00 08
[2023-07-12 16:32] LABS: Anion Gap 12 mmol/L (8-16); Blood Urea Nitrogen 68 mg/dL (9-20); Calcium 8.9 mg/dL (8.4-10.2); Carbon Dioxide 19 mmol/L (22-30); Chloride 100 mmol/L (98-107); Estimated CRCL calculation 34 ml/min; Estimated Glomerular Filt Rate 26; Glucose 123 mg/dL (65-110); Potassium 3.9 mmol/L (3.4-5.0); Sodium 131 mmol/L (137-145)
[2023-07-12 16:51] LABS: Glucose Point of Care 131 mg/dl (65-105)
[2023-07-12] MEDS: ATORVASTATIN 10 MG TABLET PO (20:17)
[2023-07-12 20:28] LABS: Glucose Point of Care 134 mg/dl (65-105)
[2023-07-13] VITALS (25 sets, daily range): BP systolic 82–114; BP diastolic 41–87; PULSE 9–142; RESP 21–38; TEMP 35.9–37.6; O2SAT 86–95
[2023-07-13] MEDS: MIDODRINE HCL 2.5 MG TABLET 5 MG PO ×4 (00:20→16:47)
[2023-07-13 04:44] LABS: Hematocrit 43.3 % (42.0-52.0); Hemoglobin 14.7 g/dL (14.0-18.0); Mean Corpuscular HGB Conc 33.9 g/dl (32-36); Mean Corpuscular Hemoglobin 33.5 pg (26-34); Mean Corpuscular Volume 98.6 fl (80-100); Mean Platelet Volume 10.1 fl (7.4-10.4); Platelet Count Result 149 k/mm3 (150-375); Red Blood Count 4.39 M/mm3 (4.6-6.20); Red Cell Distribution Width 14.9 % (11.5-14.5); White Blood Count 7.4 K/mm3 (4.5-10.0)
[2023-07-13 04:55] LABS: Alanine Aminotransferase 18 U/L (6-50); Albumin Level 3.8 g/dL (3.5-5.1); Alkaline Phosphatase 88 U/L (38-126); Anion Gap 11 mmol/L (8-16); Aspartate Amino Transferase 24 U/L (17-59); Bilirubin,Total 2.1 mg/dL (0.2-1.3); Blood Urea Nitrogen 61 mg/dL (9-20); Calcium 8.7 mg/dL (8.4-10.2); Carbon Dioxide 21 mmol/L (22-30); Chloride 100 mmol/L (98-107); Estimated CRCL calculation 42 ml/min; Estimated Glomerular Filt Rate 34; Glucose 108 mg/dL (65-110); Magnesium 1.7 mg/dL (1.6-2.3); Potassium 3.2 mmol/L (3.4-5.0); Sodium 132 mmol/L (137-145)
[2023-07-13] MEDS: LEVOTHYROXINE SODIUM 88 MCG TABLET PO (05:51)
[2023-07-13 07:48] LABS: Glucose Point of Care 129 mg/dl (65-105)
[2023-07-13] MEDS: APIXABAN 5 MG TABLET PO ×2 (07:50→16:48)
[2023-07-13] MEDS: FUROSEMIDE INJ 40 MG/4 ML VIAL IV PUSH ×2 (07:50→16:47)
[2023-07-13] MEDS: ASPIRIN 81 MG ENTERIC TABLET PO (07:50)
--- NOTE | 2023-07-13 08:22 | PM.IMPN ---
Progress Note: A&P Assessment and Plan (1) A-fib: Code(s): I48.91 - Unspecified atrial fibrillation Status: Acute Assessment and Plan: 07/11: Patient presented to the ER with Sinus tachycardia to AFib RVR with increasing shortness of breath. Chest x-ray showed pulmonary edema, elevated proBNP -started on amiodarone bolus and amiodarone infusion infusion -cardiology has been consulted -patient has been on Eliquis at home, which has been continued -patient has had history of cardioversion for similar symptoms in the past (2) CHF (congestive heart failure): Code(s): I50.9 - Heart failure, unspecified Status: Acute Assessment and Plan: Chest x-ray shows pulmonary edema, elevated proBNP -continue Lasix -patient has not had any urine output -continues to require supplemental oxygen -will hold Entresto and Coreg due to borderline blood pressures (3) Acute kidney injury superimposed on chronic kidney disease: Code(s): N17.9 - Acute kidney failure, unspecified; N18.9 - Chronic kidney disease, unspecified Status: Acute Assessment and Plan: Acute kidney injury most likely related to congestive heart failure, hypotension, AFib RVR Patient receiving Lasix for volume overload Check renal ultrasound, CK Monitor urine output, renal function remained electrolyte (4) DM renal manif type II: Code(s): E11.29 - Type 2 diabetes mellitus with other diabetic kidney complication Status: Acute Assessment and Plan: Will add Accu-Cheks and sliding scale insulin (5) HTN (hypertension): Code(s): I10 - Essential (primary) hypertension Status: Acute Assessment and Plan: Blood pressures are borderline, will continue to hold antihypertensive (6) HLD (hyperlipidemia): Code(s): E78.5 - Hyperlipidemia, unspecified Status: Acute Assessment and Plan: Continue statin (7) Hypothyroidism: Code(s): E03.9 - Hypothyroidism, unspecified Status: Acute Assessment and Plan: Will continue levothyroxine (8) Epistaxis: Code(s): R04.0 - Epistaxis Status: Acute Assessment and Plan: Patient has history of recurrent epistaxis on the left side. Patient has nasal cannula and his oxygen is humidified. I will try switching to face mask and see if that helps (9) Hyperkalemia: Code(s): E87.5 - Hyperkalemia Status: Acute Assessment and Plan: K 5.1. Will order Lokelma Recheck BMP later in the day Plan DVT prophylaxis: Eliquis Stress ulcer prophylaxis: Patient on PPI Nutrition: Heart healthy diet Code Status: Full code Subjective Date/time seen: 07/13/23 08:22 Interval history: 67-year-old male with coronary artery disease status post 2 vessel CABG at [facility] in 2012, paroxysmal atrial fibrillation and flutter, heart failure with reduced ejection fraction, hypertension, type 2 diabetes mellitus, and hypothyroidism who presented to the emergency department via private vehicle from home for evaluation of shortness of breath. No overnight events noted. No chest pain or shortness of breath. No nausea, vomiting or diarrhea. No fevers or chills. Review of Systems Review of Systems: 12 point review of systems was assessed and was negative except as noted in the HPI Exam Narrative: General: No acute distress, alert and oriented per baseline HEENT: Atraumatic, normocephalic, mucous membranes moist CV: Regular rate and rhythm, S1, S2 Lungs: Clear to auscultation bilaterally, crackles at bases Abdomen: Soft, nontender, nondistended Extremities: Normal to inspection, trace nonpitting edema bilaterally Skin: No rashes noted, no lesions or wounds seen Psych: Euthymic, normal affect Objective Data Vital Signs Vital Signs: Vital Signs - 24 hr 07/12/23 09:12 07/12/23 10:00 07/12/23 11:04 Temperature Pulse Rate 97 91 Respiratory Rate 26 H Bl
[2023-07-13] MEDS: POTASSIUM CHLORIDE 20 MEQ PACKET (FOR LIQUID) 40 MEQ PO ×2 (08:32→15:45)
[2023-07-13] MEDS: MAGNESIUM SULF 2 GM/WATER 50ML 2 GM/50 ML BAG IVPB (08:32)
[2023-07-13] MEDS: POTASSIUM CHLORIDE INJ 40 MEQ in SODIUM CHLORIDE 0.9% IV 500 ML 130 MEQ IVPB (08:32)
--- NOTE | 2023-07-13 08:37 | WPDINTPN ---
Progress Note: A&P Assessment and Plan (1) A-fib: Code(s): I48.91 - Unspecified atrial fibrillation Status: Acute Assessment and Plan: 07/11: Patient presented to the ER with Sinus tachycardia to AFib RVR with increasing shortness of breath. Chest x-ray showed pulmonary edema, elevated proBNP -started on amiodarone bolus and amiodarone infusion infusion -cardiology is managing and may switch patient today to p.o. amiodarone -patient has been on Eliquis at home, which has been continued -patient has had history of cardioversion for similar symptoms in the past (2) CHF (congestive heart failure): Code(s): I50.9 - Heart failure, unspecified Status: Acute Assessment and Plan: Chest x-ray shows pulmonary edema, elevated proBNP -continue Lasix -improved urine output -continues to require supplemental oxygen -will hold Entresto and Coreg due to borderline blood pressures (3) Acute kidney injury superimposed on chronic kidney disease: Code(s): N17.9 - Acute kidney failure, unspecified; N18.9 - Chronic kidney disease, unspecified Status: Acute Assessment and Plan: Acute kidney injury most likely related to congestive heart failure, hypotension, AFib RVR Patient receiving Lasix for volume overload renal ultrasound showed bilateral renal cyst, normal CK Creatinine is improving Monitor urine output, renal function remained electrolyte (4) DM renal manif type II: Code(s): E11.29 - Type 2 diabetes mellitus with other diabetic kidney complication Status: Acute Assessment and Plan: Continue accu-Cheks and sliding scale insulin (5) HTN (hypertension): Code(s): I10 - Essential (primary) hypertension Status: Acute Assessment and Plan: Blood pressures are borderline, will continue to hold antihypertensive (6) HLD (hyperlipidemia): Code(s): E78.5 - Hyperlipidemia, unspecified Status: Acute Assessment and Plan: Continue statin (7) Hypothyroidism: Code(s): E03.9 - Hypothyroidism, unspecified Status: Acute Assessment and Plan: Will continue levothyroxine (8) Epistaxis: Code(s): R04.0 - Epistaxis Status: Acute Assessment and Plan: Patient has history of recurrent epistaxis on the left side. Patient has nasal cannula and his oxygen is humidified. He did not like face mask No recurrence over last 36 hours (9) Electrolyte abnormality: Code(s): E87.8 - Other disorders of electrolyte and fluid balance, not elsewhere classified Status: Acute Assessment and Plan: Yesterday k 5.1. And patient was treated with lokelma. Patient also received Lasix Potassium low this morning and will be replaced Recheck BMP later in the day Plan DVT prophylaxis: Eliquis Stress ulcer prophylaxis: Patient on PPI Nutrition: Heart healthy diet Code Status: Full code PT OT consult Incentive spirometry Up in chair Transfer out of ICU today Subjective Date/time seen: 07/13/23 Overnight events reviewed. Afebrile Continues to be on nasal cannula 6-8 L Good urine output in response to Lasix Patient states he feels better today as compared to yesterday and slept well last night. He denies feeling short of breath at this time and he has been using IS although infrequently. He states his cough has resolved. Patient denies fever, chest pain, nausea vomiting, abdominal pain,, diarrhea, headache or constipation. He has soft blood pressure while sleeping which resolves once he is awake Interval history: Reason for visit: Acute on chronic heart failure exacerbation, atrial fibrillation Review of Systems Review of Systems: All systems reviewed & are unremarkable except as noted in HPI and below Exam Narrative: General: Pleasant gentleman in no acute distress HEENT:? Pupils equal reactive, sclera is clear, some dried up blood at left nostril no active bleeding Neck:? Supple n
[2023-07-13] MEDS: AMIODARONE 360 MG/D5W 200 ML 360 MG/200 ML BAG 16.67 MG IV CONT (10:10)
[2023-07-13 11:29] LABS: Glucose Point of Care 174 mg/dl (65-105)
--- NOTE | 2023-07-13 14:17 | ECG_ITS ---
Measurements Intervals [place] Rate: 94 P: -35 [place]: 170 QRS: 152 QRSD: 146 T: 171 QT: 431 QTc: 542 Interpretive Statements PROBABLE ATRIAL FLUTTER WITH VARIABLE AV BLOCK OCCASIONAL VENTRICULAR PREMATURE COMPLEXES RIGHT BUNDLE BRANCH BLOCK LEFT POSTERIOR FASCICULAR BLOCK ABNORMAL ECG COMPARED TO ECG 07/11/2023 10:33:49 NO SIGNIFICANT CHANGE Electronically Signed On 07-13-2023 16:14:44 CDT by Anastacio Woodruff M.D.
--- NOTE | 2023-07-13 14:18 | PM.PNCARD ---
Progress Note: A&P Assessment and Plan (1) Acute on chronic systolic congestive heart failure: Code(s): I50.23 - Acute on chronic systolic (congestive) heart failure Status: Acute Assessment and Plan: Acute on chronic systolic heart failure.? Presents with progressive dyspnea on exertion and orthopnea. He is improving with IV Lasix. Continue diuresis with IV furosemide Daily weights Accurate intake and output Low Na diet Daily BMP while diuresing (2) Cardiomyopathy: Code(s): I42.9 - Cardiomyopathy, unspecified Status: Acute Assessment and Plan: EF 30% by echo in 2019.? Repeat echo this admission with LVEF 20-25%. His Coreg, Entresto are currently on hold due to hypotension on presentation. Will need to resume GDMT when blood pressures are better. (3) CAD (coronary artery disease): Code(s): I25.10 - Atherosclerotic heart disease of [place] coronary artery without angina pectoris Status: Acute Assessment and Plan: Continue ASA and statin (4) Atrial fibrillation with rapid ventricular response: Code(s): I48.91 - Unspecified atrial fibrillation Status: Acute Assessment and Plan: NSR with intermittent AF with RVR. Will obtain EKG today. Stop IV Amiodarone drip, will do PO Amiodarone for now. No plans for long-term Amiodarone therapy as patient used to be on Amiodarone in the past but it was discontinued due to elevated TSH. Continue Eliquis for anticoagulation. (5) Acute kidney injury superimposed on chronic kidney disease: Code(s): N17.9 - Acute kidney failure, unspecified; N18.9 - Chronic kidney disease, unspecified Status: Acute Assessment and Plan: Monitor renal function closely. Plan Recommendations/plan discussed with [employer] Drawer Hand. Subjective Date/time seen: 07/13/23 14:19 Interval history: Reason for visit: Acute on chronic heart failure exacerbation, atrial fibrillation HPI: Lance Gray is a 67-year-old male with coronary artery disease, history of inferior ST-elevation [place], status post CABG times 2 (right radial artery graft to the RPDA, SVG to OM 2 on 09/24/2013), type 2 diabetes mellitus, dyslipidemia, and renal insufficiency.? He presents to the hospital now with a chief complaint of shortness of breath.? He's had progressive dyspnea and orthopnea over the past couple of weeks.? Denies any dietary changes or alterations to his medical regimen.? Denies any chest pain, palpitations, syncope, pre-syncope.? In emergency department was noted to be having intermittent episodes of atrial fib/flutter with RVR and was hypotensive.? He has been given IV furosemide, placed on an amiodarone drip, and admitted to the ICU for further management.? Date of service 07/12: In sinus rhythm currently with frequent PACs. Patient reports that his breathing feels better this morning, is able to lay more flat than before. Made 650ccs of urine this morning thus far. Date of service 07/13: He is diuresing well now. Continues to have improvement in shortness of breath. Review of Systems Review of Systems: All systems reviewed & are unremarkable except as noted in HPI and below (HPI) Exam Const: General: comfortable and no acute distress HENMT: Other: Nasal cannula in place. Eyes: Sclera: sclerae normal Neck: Neck: supple Resp: Effort & Inspection: normal respiratory effort Auscultation: diminished lung sounds Cardio: Rate: regular rate Rhythm: abnormal rhythm with ectopic beats Heart sounds: no murmurs Skin: General skin exam: normal color Neuro: Speech: normal speech Extrem: General: no edema Psych: Mental Status: mental status grossly normal Affect: normal affect Objective Data Vital Signs Vital Signs: Vital Signs - 24 hr 07/12/23 16:00 07/12/23 15:00 07/12/23 16:00 Temperature Pulse Rate 67 Respiratory Rate Blood Pressure Pulse Oximetry 97 90 Oxygen Delivery Venturi Mask Venturi Mask
[2023-07-13 15:18] LABS: Anion Gap 11 mmol/L (8-16); Blood Urea Nitrogen 57 mg/dL (9-20); Calcium 8.9 mg/dL (8.4-10.2); Carbon Dioxide 27 mmol/L (22-30); Chloride 100 mmol/L (98-107); Estimated CRCL calculation 40 ml/min; Estimated Glomerular Filt Rate 34; Glucose 125 mg/dL (65-110); Potassium 3.8 mmol/L (3.4-5.0); Sodium 138 mmol/L (137-145)
--- NOTE | 2023-07-13 15:32 | PC.NURSE ---
Notified Dr. Walker of pt potassium results of 3.8. New order to give 40meq PO Potassium now, give 40mg IVP Lasix at 1700, and recheck BMP in AM
[2023-07-13] MEDS: AMIODARONE HCL 200 MG TABLET 400 MG PO (16:47)
[2023-07-13 16:52] LABS: Glucose Point of Care 178 mg/dl (65-105)
[2023-07-13] MEDS: METOPROLOL TARTRATE INJ 5 MG/5 ML VIAL 2.5 MG IV PUSH (20:16)
[2023-07-13] MEDS: ATORVASTATIN 10 MG TABLET PO (20:16)
[2023-07-13 20:51] LABS: Glucose Point of Care 201 mg/dl (65-105)
[2023-07-14] VITALS (18 sets, daily range): BP systolic 87–118; BP diastolic 63–86; PULSE 66–90; RESP 18–27; TEMP 36.3–37.2; O2SAT 88–98
[2023-07-14 04:14] LABS: Hematocrit 43.4 % (42.0-52.0); Hemoglobin 14.6 g/dL (14.0-18.0); Mean Corpuscular HGB Conc 33.6 g/dl (32-36); Mean Corpuscular Hemoglobin 33.3 pg (26-34); Mean Corpuscular Volume 99.1 fl (80-100); Mean Platelet Volume 10.1 fl (7.4-10.4); Platelet Count Result 143 k/mm3 (150-375); Red Blood Count 4.38 M/mm3 (4.6-6.20); White Blood Count 7.9 K/mm3 (4.5-10.0)
[2023-07-14 04:26] LABS: Alanine Aminotransferase 21 U/L (6-50); Albumin Level 3.9 g/dL (3.5-5.1); Alkaline Phosphatase 111 U/L (38-126); Anion Gap 11 mmol/L (8-16); Aspartate Amino Transferase 27 U/L (17-59); Bilirubin,Total 3.1 mg/dL (0.2-1.3); Blood Urea Nitrogen 53 mg/dL (9-20); Calcium 8.5 mg/dL (8.4-10.2); Carbon Dioxide 26 mmol/L (22-30); Chloride 97 mmol/L (98-107); Estimated CRCL calculation 42 ml/min; Estimated Glomerular Filt Rate 36; Glucose 131 mg/dL (65-110); Magnesium 1.8 mg/dL (1.6-2.3); Potassium 3.3 mmol/L (3.4-5.0); Sodium 134 mmol/L (137-145)
[2023-07-14] MEDS: LEVOTHYROXINE SODIUM 88 MCG TABLET PO (05:29)
[2023-07-14 08:00] LABS: Glucose Point of Care 163 mg/dl (65-105)
[2023-07-14] MEDS: APIXABAN 5 MG TABLET PO ×2 (08:42→16:56)
[2023-07-14] MEDS: ASPIRIN 81 MG ENTERIC TABLET PO (08:42)
[2023-07-14] MEDS: MIDODRINE HCL 2.5 MG TABLET 5 MG PO ×3 (08:42→16:56)
[2023-07-14] MEDS: PANTOPRAZOLE 40 MG TABLET PO (08:42)
[2023-07-14] MEDS: AMIODARONE HCL 200 MG TABLET 400 MG PO ×2 (08:42→16:56)
[2023-07-14] MEDS: FUROSEMIDE INJ 40 MG/4 ML VIAL IV PUSH (08:44)
[2023-07-14] MEDS: FLUTICASONE PROPIONATE 0.05% NA SPR 16 GM BTL (*BKC) 2 SPRAY NASAL (08:49)
--- NOTE | 2023-07-14 09:59 | PM.PNCARD ---
Progress Note: A&P Assessment and Plan (1) Acute on chronic systolic congestive heart failure: Code(s): I50.23 - Acute on chronic systolic (congestive) heart failure Status: Acute Assessment and Plan: Acute on chronic systolic heart failure.? Presents with progressive dyspnea on exertion and orthopnea. He is improving with IV Lasix. Continue diuresis with IV furosemide. Will give an extra dose this afternoon if BP permits Daily weights Accurate intake and output Low Na diet Daily BMP while diuresing Check CXR (2) Cardiomyopathy: Code(s): I42.9 - Cardiomyopathy, unspecified Status: Acute Assessment and Plan: EF 30% by echo in 2019.? Repeat echo this admission with LVEF 20-25%. His Coreg, Entresto are currently on hold due to hypotension on presentation. Will need to resume GDMT when blood pressures are better. (3) CAD (coronary artery disease): Code(s): I25.10 - Atherosclerotic heart disease of [place] coronary artery without angina pectoris Status: Acute Assessment and Plan: Continue ASA and statin (4) Atrial fibrillation with rapid ventricular response: Code(s): I48.91 - Unspecified atrial fibrillation Status: Acute Assessment and Plan: NSR with intermittent AF with RVR. Will obtain EKG today. Stop IV Amiodarone drip, will do PO Amiodarone for now. No plans for long-term Amiodarone therapy as patient used to be on Amiodarone in the past but it was discontinued due to elevated TSH. Continue Eliquis for anticoagulation. (5) Acute kidney injury superimposed on chronic kidney disease: Code(s): N17.9 - Acute kidney failure, unspecified; N18.9 - Chronic kidney disease, unspecified Status: Acute Assessment and Plan: Monitor renal function closely. Plan Recommendations/plan discussed with Enrober. Subjective Date/time seen: 07/14/23 09:59 Interval history: Reason for visit: Acute on chronic heart failure exacerbation, atrial fibrillation HPI: Lance Gray is a 67-year-old male with coronary artery disease, history of inferior ST-elevation [place], status post CABG times 2 (right radial artery graft to the RPDA, SVG to OM 2 on 09/24/2013), type 2 diabetes mellitus, dyslipidemia, and renal insufficiency.? He presents to the hospital now with a chief complaint of shortness of breath.? He's had progressive dyspnea and orthopnea over the past couple of weeks.? Denies any dietary changes or alterations to his medical regimen.? Denies any chest pain, palpitations, syncope, pre-syncope.? In emergency department was noted to be having intermittent episodes of atrial fib/flutter with RVR and was hypotensive.? He has been given IV furosemide, placed on an amiodarone drip, and admitted to the ICU for further management.? Date of service 07/12: In sinus rhythm currently with frequent PACs. Patient reports that his breathing feels better this morning, is able to lay more flat than before. Made 650ccs of urine this morning thus far. Date of service 07/13: He is diuresing well now. Continues to have improvement in shortness of breath. Date of service 07/14/2023: Feeling better today. Less short of breath. Has a nose bleed. Review of Systems Review of Systems: All systems reviewed & are unremarkable except as noted in HPI and below (HPI) Exam Const: General: comfortable, no acute distress, alert and awake Orientation/consciousness: patient oriented x3 HENMT: Head: normal to inspection Other: Nasal cannula in place. Eyes: General: appearance normal, both eyes and all related structures Sclera: sclerae normal Pupils: Equal, round and reactive pupils present Neck: Neck: normal visual inspection and supple Carotids: normal carotid upstroke Resp: Effort & Inspection: normal respiratory effort Auscultation: not clear to auscultation bilaterally, rales and diminished lung sounds Cardio: Rate: regular rate and tachycardic Rhythm: r
[2023-07-14] MEDS: POTASSIUM CHLORIDE 20 MEQ ER TABLET 80 MEQ PO (10:38)
--- NOTE | 2023-07-14 11:17 | PM.IMPN ---
Progress Note: A&P Assessment and Plan (1) A-fib: Code(s): I48.91 - Unspecified atrial fibrillation Status: Acute Assessment and Plan: -started on amiodarone bolus and amiodarone infusion infusion -cardiology is managing and switched him to p.o. amiodarone -patient has been on Eliquis at home, which has been continued -patient has had history of cardioversion for similar symptoms in the past (2) CHF (congestive heart failure): Code(s): I50.9 - Heart failure, unspecified Status: Acute Assessment and Plan: Chest x-ray shows pulmonary edema, elevated proBNP -continue Lasix (3) Acute kidney injury superimposed on chronic kidney disease: Code(s): N17.9 - Acute kidney failure, unspecified; N18.9 - Chronic kidney disease, unspecified Status: Acute Assessment and Plan: Acute kidney injury most likely related to congestive heart failure, hypotension, AFib RVR Patient receiving Lasix for volume overload renal ultrasound showed bilateral renal cyst, normal CK Creatinine is improving Monitor urine output, renal function remained electrolyte (4) DM renal manif type II: Code(s): E11.29 - Type 2 diabetes mellitus with other diabetic kidney complication Status: Acute Assessment and Plan: Continue accu-Cheks and sliding scale insulin (5) HTN (hypertension): Code(s): I10 - Essential (primary) hypertension Status: Acute Assessment and Plan: Blood pressures are borderline, will continue to hold antihypertensive (6) HLD (hyperlipidemia): Code(s): E78.5 - Hyperlipidemia, unspecified Status: Acute Assessment and Plan: Continue statin (7) Hypothyroidism: Code(s): E03.9 - Hypothyroidism, unspecified Status: Acute Assessment and Plan: Will continue levothyroxine (8) Hypoxia: Code(s): R09.02 - Hypoxemia Status: Acute Assessment and Plan: Requiring oxygen. May have a component of sleep apnea. Will order ApneaLink Subjective Date/time seen: 07/14/23 11:17 Interval history: No new issues Review of Systems Review of Systems: All systems reviewed & are unremarkable except as noted in HPI and below (HPI) Exam Narrative: General: No acute distress, alert and oriented per baseline HEENT: Atraumatic, normocephalic, mucous membranes moist CV: Regular rate and rhythm, S1, S2 Lungs: Clear to auscultation bilaterally, crackles at bases Abdomen: Soft, nontender, nondistended Extremities: Normal to inspection, trace nonpitting edema bilaterally Skin: No rashes noted, no lesions or wounds seen Psych: Euthymic, normal affect Objective Data Vital Signs Vital Signs: Vital Signs - 24 hr 07/13/23 12:00 07/13/23 12:00 07/13/23 12:00 Temperature 96.7 F L Pulse Rate 94 93 Pulse Rate [With Activity During Therapy Session] Respiratory Rate 24 H Blood Pressure 110/79 Pulse Oximetry 92 92 Pulse Oximetry [With Activity During Therapy Session] Oxygen Delivery High Flow Nasal Cannula Oxygen Flow Rate 4 Fraction of Inspired Oxygen 07/13/23 14:00 07/13/23 15:41 07/13/23 16:00 Temperature Pulse Rate 79 Pulse Rate [With Activity During Therapy Session] 136 H Respiratory Rate Blood Pressure Pulse Oximetry 92 Pulse Oximetry [With Activity During Therapy Session] 88 L Oxygen Delivery Nasal Cannula Nasal Cannula Oxygen Flow Rate 4 4 Fraction of Inspired Oxygen 07/13/23 16:00 07/13/23 16:00 07/13/23 16:47 Temperature 96.8 F L Pulse Rate 94 94 115 H Pulse Rate [With Activity During Therapy Session] Respiratory Rate 22 H Blood Pressure 108/80 Pulse Oximetry 95 Pulse Oximetry [With Activity During Therapy Session] Oxygen Delivery Oxygen Flow Rate Fraction of Inspired Oxygen 07/13/23 12:03 07/13/23 18:00 07/13/23 20:16 Temperature Pulse Rate 89 130 H 142 H Pulse Rate [With Activity During Th
[2023-07-14 11:58] LABS: Glucose Point of Care 210 mg/dl (65-105)
[2023-07-14] MEDS: INSULIN ASPART (*BKC) 100 UNITS/ML SUB-Q (12:24)
[2023-07-14] MEDS: SALINE 0.65% NAS SOLN 44 ML BTL 1 SPRAY NASAL (12:29)
--- NOTE | 2023-07-14 13:59 | PC.NURSE ---
This patient, Lance Gray, was transferred to [241 ] on 07/14/23 at 1350. Personal belongings sent with patient. Report given to [Katerina ]. Appropriate documentation sent with patient.
--- NOTE | 2023-07-14 15:15 | PC.NURSE ---
Patient oriented to room 241 @ 1355 from ICU. Patient resting comfortably.
[2023-07-14 16:47] LABS: Anion Gap 11 mmol/L (8-16); Blood Urea Nitrogen 52 mg/dL (9-20); Calcium 8.7 mg/dL (8.4-10.2); Carbon Dioxide 28 mmol/L (22-30); Chloride 96 mmol/L (98-107); Estimated CRCL calculation 40 ml/min; Estimated Glomerular Filt Rate 34; Glucose 127 mg/dL (65-110); Potassium 4.1 mmol/L (3.4-5.0); Sodium 135 mmol/L (137-145)
[2023-07-14 17:13] LABS: Glucose Point of Care 147 mg/dl (65-105)
[2023-07-14] MEDS: ATORVASTATIN 10 MG TABLET PO (21:03)
[2023-07-15] VITALS (15 sets, daily range): BP systolic 93–102; BP diastolic 65–71; PULSE 58–73; RESP 18; TEMP 36.6–36.7; O2SAT 92–96
[2023-07-15] MEDS: LEVOTHYROXINE SODIUM 88 MCG TABLET PO (06:15)
[2023-07-15 06:58] LABS: Hematocrit 43.1 % (42.0-52.0); Hemoglobin 14.2 g/dL (14.0-18.0); Mean Corpuscular HGB Conc 32.9 g/dl (32-36); Mean Corpuscular Hemoglobin 32.9 pg (26-34); Mean Platelet Volume 10.5 fl (7.4-10.4); Platelet Count Result 146 k/mm3 (150-375); Red Blood Count 4.31 M/mm3 (4.6-6.20); Red Cell Distribution Width 14.8 % (11.5-14.5); White Blood Count 5.8 K/mm3 (4.5-10.0)
[2023-07-15 07:06] LABS: Magnesium 1.9 mg/dL (1.6-2.3)
[2023-07-15 08:24] LABS: Glucose Point of Care 161 mg/dl (65-105)
[2023-07-15] MEDS: POTASSIUM CHLORIDE 20 MEQ ER TABLET 40 MEQ PO (08:25)
[2023-07-15] MEDS: APIXABAN 5 MG TABLET PO ×2 (08:26→16:37)
[2023-07-15] MEDS: AMIODARONE HCL 200 MG TABLET 400 MG PO ×2 (08:26→16:36)
[2023-07-15] MEDS: FUROSEMIDE INJ 40 MG/4 ML VIAL IV PUSH (08:27)
[2023-07-15] MEDS: ASPIRIN 81 MG ENTERIC TABLET PO (08:27)
[2023-07-15] MEDS: MIDODRINE HCL 2.5 MG TABLET 5 MG PO ×3 (08:27→16:37)
[2023-07-15] MEDS: PANTOPRAZOLE 40 MG TABLET PO (08:28)
[2023-07-15 09:14] LABS: Anion Gap 9 mmol/L (8-16); Blood Urea Nitrogen 47 mg/dL (9-20); Calcium 8.5 mg/dL (8.4-10.2); Carbon Dioxide 23 mmol/L (22-30); Chloride 100 mmol/L (98-107); Estimated CRCL calculation 47 ml/min; Estimated Glomerular Filt Rate 41; Glucose 136 mg/dL (65-110); Potassium 3.4 mmol/L (3.4-5.0); Sodium 132 mmol/L (137-145)
--- NOTE | 2023-07-15 11:05 | PM.PNCARD ---
Progress Note: A&P Assessment and Plan (1) Acute on chronic systolic congestive heart failure: Code(s): I50.23 - Acute on chronic systolic (congestive) heart failure Status: Acute Assessment and Plan: Acute on chronic systolic heart failure.? Presents with progressive dyspnea on exertion and orthopnea. He is improving with IV Lasix. Continue diuresis with IV furosemide Daily weights Accurate intake and output Low Na diet Daily BMP while diuresing (2) Cardiomyopathy: Code(s): I42.9 - Cardiomyopathy, unspecified Status: Acute Assessment and Plan: EF 30% by echo in 2019.? Repeat echo this admission with LVEF 20-25%. His Coreg, Entresto are currently on hold due to hypotension on presentation. Will need to resume GDMT when blood pressures are better. (3) CAD (coronary artery disease): Code(s): I25.10 - Atherosclerotic heart disease of [place] coronary artery without angina pectoris Status: Acute Assessment and Plan: Continue ASA and statin (4) Atrial fibrillation with rapid ventricular response: Code(s): I48.91 - Unspecified atrial fibrillation Status: Acute Assessment and Plan: NSR with intermittent AF with RVR. Will obtain EKG today. Stop IV Amiodarone drip, will do PO Amiodarone for now. Will lower amiodarone dose to maintenance dose of 200mg daily at this point. No plans for long-term Amiodarone therapy as patient used to be on Amiodarone in the past but it was discontinued due to elevated TSH. Continue Eliquis for anticoagulation. (5) Acute kidney injury superimposed on chronic kidney disease: Code(s): N17.9 - Acute kidney failure, unspecified; N18.9 - Chronic kidney disease, unspecified Status: Acute Assessment and Plan: Monitor renal function closely. Subjective Date/time seen: 07/15/23 11:05 Interval history: Reason for visit: Acute on chronic heart failure exacerbation, atrial fibrillation HPI: Lance Gray is a 67-year-old male with coronary artery disease, history of inferior ST-elevation [place], status post CABG times 2 (right radial artery graft to the RPDA, SVG to OM 2 on 09/24/2013), type 2 diabetes mellitus, dyslipidemia, and renal insufficiency.? He presents to the hospital now with a chief complaint of shortness of breath.? He's had progressive dyspnea and orthopnea over the past couple of weeks.? Denies any dietary changes or alterations to his medical regimen.? Denies any chest pain, palpitations, syncope, pre-syncope.? In emergency department was noted to be having intermittent episodes of atrial fib/flutter with RVR and was hypotensive.? He has been given IV furosemide, placed on an amiodarone drip, and admitted to the ICU for further management.? Date of service 07/12: In sinus rhythm currently with frequent PACs. Patient reports that his breathing feels better this morning, is able to lay more flat than before. Made 650ccs of urine this morning thus far. Date of service 07/13: He is diuresing well now. Continues to have improvement in shortness of breath. Date of service 07/14/2023: Feeling better today.? Less short of breath.? Has a nose bleed. Date of service 07/15/2023: Continues to feel better. Was able to walk with PT today without significant shortness of breath. Review of Systems Review of Systems: All systems reviewed & are unremarkable except as noted in HPI and below (HPI) Exam Const: General: comfortable, no acute distress, alert and awake Orientation/consciousness: patient oriented x3 HENMT: Head: normal to inspection Face/Nose/Sinus: Epistaxis present Other: Nasal cannula in place. Eyes: General: appearance normal, both eyes and all related structures Sclera: sclerae normal Pupils: Equal, round and reactive pupils present Neck: Neck: normal visual inspection and supple Carotids: normal carotid upstroke Resp: Effort & Inspection: normal respiratory effort Auscultation: not clear
--- NOTE | 2023-07-15 11:13 | PM.IMPN ---
Progress Note: A&P Assessment and Plan (1) A-fib: Code(s): I48.91 - Unspecified atrial fibrillation Status: Acute Assessment and Plan: -heart rate controlled. - Appreciate cardiology input. Continue p.o. amiodarone -patient has been on Eliquis at home, which has been continued -patient has had history of cardioversion for similar symptoms in the past (2) CHF (congestive heart failure): Code(s): I50.9 - Heart failure, unspecified Status: Acute Assessment and Plan: Chest x-ray shows pulmonary edema, elevated proBNP -continue IV Lasix. Monitor BMP (3) Acute kidney injury superimposed on chronic kidney disease: Code(s): N17.9 - Acute kidney failure, unspecified; N18.9 - Chronic kidney disease, unspecified Status: Acute Assessment and Plan: Acute kidney injury most likely related to congestive heart failure, hypotension, AFib RVR Patient receiving Lasix for volume overload renal ultrasound showed bilateral renal cyst, normal CK Creatinine is improving (4) DM renal manif type II: Code(s): E11.29 - Type 2 diabetes mellitus with other diabetic kidney complication Status: Acute Assessment and Plan: Continue accu-Cheks and sliding scale insulin (5) HTN (hypertension): Code(s): I10 - Essential (primary) hypertension Status: Acute Assessment and Plan: Continue Lasix (6) HLD (hyperlipidemia): Code(s): E78.5 - Hyperlipidemia, unspecified Status: Acute Assessment and Plan: Continue statin (7) Hypothyroidism: Code(s): E03.9 - Hypothyroidism, unspecified Status: Acute Assessment and Plan: Will continue levothyroxine (8) Hypoxia: Code(s): R09.02 - Hypoxemia Status: Acute Assessment and Plan: Requiring oxygen. May have a component of sleep apnea. Will order ApneaLink Subjective Date/time seen: 07/15/23 11:13 Interval history: Stable. No chest pain. On oxygen Review of Systems Review of Systems: All systems reviewed & are unremarkable except as noted in HPI and below (HPI) Exam Narrative: General: No acute distress, alert and oriented per baseline HEENT: Atraumatic, normocephalic, mucous membranes moist CV: Regular rate and rhythm, S1, S2 Lungs: Clear to auscultation bilaterally, crackles at bases Abdomen: Soft, nontender, nondistended Extremities: Normal to inspection, trace nonpitting edema bilaterally Skin: No rashes noted, no lesions or wounds seen Psych: Euthymic, normal affect Objective Data Vital Signs Vital Signs: Vital Signs - 24 hr 07/14/23 11:54 07/14/23 12:00 07/14/23 14:20 Temperature 97.4 F L Pulse Rate 76 69 Respiratory Rate 20 Blood Pressure 98/71 L Pulse Oximetry 94 Pulse Oximetry [With Activity During Therapy Session] 92 Oxygen Delivery Nasal Cannula Oxygen Flow Rate 6 Fraction of Inspired Oxygen 07/14/23 16:56 07/14/23 16:00 07/14/23 19:21 Temperature 98.1 F Pulse Rate 71 70 70 Respiratory Rate 18 Blood Pressure 98/64 L Pulse Oximetry 95 Pulse Oximetry [With Activity During Therapy Session] Oxygen Delivery Oxygen Flow Rate Fraction of Inspired Oxygen 07/14/23 20:00 07/14/23 20:00 07/14/23 22:00 Temperature Pulse Rate 66 Respiratory Rate Blood Pressure Pulse Oximetry 98 89 L Pulse Oximetry [With Activity During Therapy Session] Oxygen Delivery Nasal Cannula Nasal Cannula Oxygen Flow Rate 6 4 Fraction of Inspired Oxygen 07/14/23 23:45 07/15/23 00:00 07/15/23 04:00 Temperature Pulse Rate 90 63 68 Respiratory Rate 22 H Blood Pressure Pulse Oximetry 92 Pulse Oximetry [With Activity During Therapy Session] Oxygen Delivery Nasal Cannula Oxygen Flow Rate 6 Fraction of Inspired Oxygen 44 07/15/23 06:00 07/15/23 08:26 07/15/23 08:21 Temperature 97.8 F Pulse Rate 68 73 Respiratory Rate 18 Blood Pressur
[2023-07-15 12:01] LABS: Glucose Point of Care 269 mg/dl (65-105)
[2023-07-15] MEDS: INSULIN ASPART (*BKC) 100 UNITS/ML SUB-Q (12:04)
[2023-07-15 17:05] LABS: Glucose Point of Care 163 mg/dl (65-105)
[2023-07-15] MEDS: ATORVASTATIN 10 MG TABLET PO (20:55)
[2023-07-15 21:19] LABS: Glucose Point of Care 142 mg/dl (65-105)
[2023-07-16] VITALS (15 sets, daily range): BP systolic 94–104; BP diastolic 66–70; PULSE 63–97; RESP 16–18; TEMP 35.9–36.9; O2SAT 89–94
[2023-07-16 05:34] LABS: Hematocrit 42.3 % (42.0-52.0); Hemoglobin 13.9 g/dL (14.0-18.0); Mean Corpuscular HGB Conc 32.9 g/dl (32-36); Mean Corpuscular Hemoglobin 32.9 pg (26-34); Mean Platelet Volume 10.4 fl (7.4-10.4); Platelet Count Result 153 k/mm3 (150-375); Red Blood Count 4.23 M/mm3 (4.6-6.20); Red Cell Distribution Width 14.6 % (11.5-14.5); White Blood Count 5.8 K/mm3 (4.5-10.0)
[2023-07-16] MEDS: LEVOTHYROXINE SODIUM 88 MCG TABLET PO (06:19)
[2023-07-16 06:32] LABS: Anion Gap 10 mmol/L (8-16); Blood Urea Nitrogen 46 mg/dL (9-20); Calcium 8.7 mg/dL (8.4-10.2); Carbon Dioxide 26 mmol/L (22-30); Chloride 100 mmol/L (98-107); Estimated CRCL calculation 48 ml/min; Estimated Glomerular Filt Rate 41; Glucose 124 mg/dL (65-110); Potassium 3.5 mmol/L (3.4-5.0); Sodium 136 mmol/L (137-145)
[2023-07-16] MEDS: AMIODARONE HCL 200 MG TABLET 400 MG PO ×2 (08:11→17:31)
[2023-07-16] MEDS: APIXABAN 5 MG TABLET PO ×2 (08:11→17:32)
[2023-07-16] MEDS: POTASSIUM CHLORIDE 20 MEQ ER TABLET 40 MEQ PO (08:11)
[2023-07-16] MEDS: ASPIRIN 81 MG ENTERIC TABLET PO (08:12)
[2023-07-16] MEDS: PANTOPRAZOLE 40 MG TABLET PO (08:12)
[2023-07-16] MEDS: FUROSEMIDE INJ 40 MG/4 ML VIAL IV PUSH (08:12)
[2023-07-16] MEDS: MIDODRINE HCL 2.5 MG TABLET 5 MG PO (08:12)
[2023-07-16 08:29] LABS: Glucose Point of Care 142 mg/dl (65-105)
--- NOTE | 2023-07-16 10:21 | HOMEO2EVAL ---
Evaluation was performed at [facility] Home Oxygen Evaluation RC: Home Oxygen (O2) Evaluation Start: 07/16/23 08:47 Freq: ONCE Status: Active Protocol: RPE Activity Type Activity Date Activity User E-sign Co-sign Detail Recorded Client Recorded Date Recorded By Document 07/16/23 10:11 CLC [email or web address] 07/16/23 10:21 CLC Document 07/16/23 10:14 CLC [email or web address] 07/16/23 10:21 CLC Document 07/16/23 10:15 CLC [email or web address] 07/16/23 10:21 CLC 07/16/23 07/16/23 07/16/23 10:11 10:14 10:15 Home O2 Evaluation [Oxygen] -Test Phase Resting Exercise Resting -Oxygen Delivery Room Air Room Air Room Air [Pulse Oximetry] -Pulse Oximetry (90-100 %) 92 91 89 L [Pulse Rate] -Pulse Rate (60-100 beats/min) 70 74 73 [Evaluation] -Activity Tolerance Excellent -Rate of Perceived Exertion (PE) 6 Very, very Query Text:Click the Protocol Button light to View the RPE Scale [Exercise] -Ambulation Distance (feet) 200 -Ambulation Distance (meters) 60.95 [Charges] -Treatment Charges O2 Evaluation - Inpatient
--- NOTE | 2023-07-16 10:22 | PCRCNOTE ---
Home oxygen evaluation complete. Patient requires no oxygen at this time.
--- NOTE | 2023-07-16 11:23 | ECG_ITS ---
Measurements Intervals [place] Rate: 65 P: 49 TN: 171 QRS: -33 QRSD: 161 T: 103 QT: 534 QTc: 558 Interpretive Statements SINUS RHYTHM MARKED LEFT AXIS DEVIATION [QRS AXIS < -30] RIGHT BUNDLE BRANCH BLOCK [120+ ms QRS DURATION, UPRIGHT V1, 40+ ms S IN I/aVL/V4/V5/V6] PREVIOUS INFERIOR INFARCTION ABNORMAL ECG COMPARED TO ECG 07/13/2023 15:16:17 SINUS RHYTHM NOW PRESENT Electronically Signed On 07-17-2023 7:09:17 CDT by Cornell Wild M.D.
--- NOTE | 2023-07-16 11:23 | PM.PNCARD ---
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 He appears to be back in sinus rhythm for the last couple of days on moderate dose of amiodarone. He had been on Entresto as well as carvedilol which have both been held because of hypotension at the time of admission. I would like today to discontinue midodrine as we would hope to not have to prescribe a vasoconstrictor for the long-term in this situation. Following that hopefully a modest dose of Entresto can be resumed. Hemodynamic condition is tenuous/delicate Cornell Wild MD [facility] Subjective Date/time seen: Date of service: 07/16/23 11:23 Interval history: Reason for visit: Acute on chronic heart failure exacerbation, atrial fibrillation HPI: Lance Gray is a 67-year-old male with coronary artery disease, history of inferior ST-elevation [place], status post CABG times 2 (right radial artery graft to the RPDA, SVG to OM 2 on 09/24/2013), type 2 diabetes mellitus, dyslipidemia, and renal insufficiency.? He presents to the hospital now with a chief complaint of shortness of breath.? He's had progressive dyspnea and orthopnea over the past couple of weeks.? Denies any dietary changes or alterations to his medical regimen.? Denies any chest pain, palpitations, syncope, pre-syncope.? In emergency department was noted to be having intermittent episodes of atrial fib/flutter with RVR and was hypotensive.? He has been given IV furosemide, placed on an amiodarone drip, and admitted to the ICU for further management.? Date of service 07/12: In sinus rhythm currently with frequent PACs. Patient reports that his breathing feels better this morning, is able to lay more flat than before. Made 650ccs of urine this morning thus far. Date of service 07/13: He is diuresing well now. Continues to have improvement in shortness of breath. Date of service 07/14/2023: Feeling better today.? Less short of breath.? Has a nose bleed. Date of service 07/15/2023: Continues to feel better. Was able to walk with PT today without significant shortness of breath. Date of service 07/16/2023: Feeling relatively well sitting in the chair watching television patient is in sinus rhythm still with p.o. amiodarone. Exam Const: General: comfortable, no acute distress, alert and awake Orientation/consciousness: patient oriented x3 HENMT: Head: normal to inspection Face/Nose/Sinus: Epistaxis present Other: Nasal cannula in place. Eyes: General: appearance normal, both eyes and all related structures Sclera: sclerae normal Pupils: Equal, round and reactive pupils present Neck: Neck: normal visual inspection and supple Carotids: normal carotid upstroke Resp: Effort & Inspection: normal respiratory effort Auscultation: not clear to auscultation bilaterally, rales and diminished lung sounds Cardio: Rate: regular rate and tachycardic Rhythm: regular rhythm and abnormal rhythm with ectopic beats Heart sounds: S1 normal heart sound present, S2 normal heart sound present and no murmurs GI: Auscultation: normal bowel sounds Skin: General skin exam: normal color Neuro: General: patient oriented x3 Cranial nerves: Yes Equal, round and reactive pupils present Speech: normal speech Extrem: General: normal to inspection and no edema Other: No edema Psych: Appearance: grossly normal Mental Status: mental status grossly normal Affect: normal affect Objective Data Vital Signs Vital Signs: Vital Signs - 24 hr 07/15/23 11:37 07/15/23 12:00 07/15/23 14:00 Temperature 36.6 C Pulse Rate 67 60 Respiratory Rate 18 Blood Pressure 100/66 Pulse Ox
--- NOTE | 2023-07-16 12:04 | PM.IMPN ---
Progress Note: A&P Assessment and Plan (1) A-fib: Code(s): I48.91 - Unspecified atrial fibrillation Status: Acute Assessment and Plan: -heart rate controlled. - Appreciate cardiology input. Continue p.o. amiodarone -patient has been on Eliquis at home, which has been continued -patient has had history of cardioversion for similar symptoms in the past (2) CHF (congestive heart failure): Code(s): I50.9 - Heart failure, unspecified Status: Acute Assessment and Plan: Continue oral Lasix. Monitor BMP Restart Entresto as permitted by blood pressure (3) Acute kidney injury superimposed on chronic kidney disease: Code(s): N17.9 - Acute kidney failure, unspecified; N18.9 - Chronic kidney disease, unspecified Status: Acute Assessment and Plan: Acute kidney injury most likely related to congestive heart failure, hypotension, AFib RVR Patient receiving Lasix for volume overload renal ultrasound showed bilateral renal cyst, normal CK Creatinine is improving (4) DM renal manif type II: Code(s): E11.29 - Type 2 diabetes mellitus with other diabetic kidney complication Status: Acute Assessment and Plan: Continue accu-Cheks and sliding scale insulin (5) HTN (hypertension): Code(s): I10 - Essential (primary) hypertension Status: Acute Assessment and Plan: Continue Lasix (6) HLD (hyperlipidemia): Code(s): E78.5 - Hyperlipidemia, unspecified Status: Acute Assessment and Plan: Continue statin (7) Hypothyroidism: Code(s): E03.9 - Hypothyroidism, unspecified Status: Acute Assessment and Plan: continue levothyroxine (8) Hypoxia: Code(s): R09.02 - Hypoxemia Status: Acute Assessment and Plan: ApneaLink shows desaturation overnight. Will order home O2 eval by respiratory therapist Subjective Date/time seen: 07/16/23 12:04 Interval history: Appears stable. Currently on room air Review of Systems Review of Systems: All systems reviewed & are unremarkable except as noted in HPI and below (HPI) Exam Narrative: General: No acute distress, alert and oriented per baseline HEENT: Atraumatic, normocephalic, mucous membranes moist CV: Regular rate and rhythm, S1, S2 Lungs: Clear to auscultation bilaterally, crackles at bases Abdomen: Soft, nontender, nondistended Extremities: Normal to inspection, trace nonpitting edema bilaterally Skin: No rashes noted, no lesions or wounds seen Psych: Euthymic, normal affect Objective Data Vital Signs Vital Signs: Vital Signs - 24 hr 07/15/23 14:00 07/15/23 16:36 07/15/23 16:39 Temperature 97.8 F Pulse Rate 60 65 62 Respiratory Rate 18 Blood Pressure 100/66 Pulse Oximetry 96 Oxygen Delivery Oxygen Flow Rate 07/15/23 19:16 07/15/23 20:00 07/15/23 20:00 Temperature 98.0 F Pulse Rate 58 L 63 Respiratory Rate 18 Blood Pressure 102/69 Pulse Oximetry 92 92 Oxygen Delivery Nasal Cannula Oxygen Flow Rate 3 07/15/23 22:00 07/16/23 00:00 07/15/23 21:05 Temperature 98.1 F Pulse Rate 60 68 Respiratory Rate 18 Blood Pressure 93/65 L Pulse Oximetry 94 92 Oxygen Delivery Nasal Cannula Oxygen Flow Rate 3 07/16/23 04:00 07/16/23 06:00 07/16/23 08:11 Temperature 98.5 F Pulse Rate 63 65 66 Respiratory Rate 18 Blood Pressure 104/70 Pulse Oximetry 90 Oxygen Delivery Oxygen Flow Rate 07/16/23 08:10 07/16/23 08:00 07/16/23 10:11 Temperature Pulse Rate 97 70 Respiratory Rate Blood Pressure Pulse Oximetry 94 92 Oxygen Delivery Nasal Cannula Room Air Oxygen Flow Rate 3 07/16/23 10:14 07/16/23 10:15 Temperature Pulse Rate 74 73 Respiratory Rate Blood Pressure Pulse Oximetry 91 89 L Oxygen Delivery Room Air Room Air Oxygen Flow Rate Intake/Output Intake/Output: Intake & Output 07/13/23 07/14/23 07/15/2307/16
[2023-07-16 12:08] LABS: Glucose Point of Care 249 mg/dl (65-105)
[2023-07-16] MEDS: INSULIN ASPART (*BKC) 100 UNITS/ML SUB-Q (12:15)
[2023-07-16 16:58] LABS: Glucose Point of Care 153 mg/dl (65-105)
[2023-07-16] MEDS: FUROSEMIDE 40 MG TABLET PO (17:32)
[2023-07-16 20:36] LABS: Glucose Point of Care 199 mg/dl (65-105)
[2023-07-16] MEDS: ATORVASTATIN 10 MG TABLET PO (20:40)
[2023-07-17] VITALS: PULSE 84
[2023-07-17 04:00] VITALS: PULSE 72
[2023-07-17 04:19] LABS: Hematocrit 43.4 % (42.0-52.0); Hemoglobin 14.4 g/dL (14.0-18.0); Mean Corpuscular HGB Conc 33.2 g/dl (32-36); Mean Corpuscular Volume 99.5 fl (80-100); Mean Platelet Volume 10.1 fl (7.4-10.4); Platelet Count Result 166 k/mm3 (150-375); Red Blood Count 4.36 M/mm3 (4.6-6.20); Red Cell Distribution Width 14.6 % (11.5-14.5); White Blood Count 5.4 K/mm3 (4.5-10.0)
[2023-07-17 04:31] LABS: Anion Gap 9 mmol/L (8-16); Blood Urea Nitrogen 42 mg/dL (9-20); Calcium 8.7 mg/dL (8.4-10.2); Carbon Dioxide 29 mmol/L (22-30); Chloride 99 mmol/L (98-107); Estimated CRCL calculation 54 ml/min; Estimated Glomerular Filt Rate 47; Glucose 128 mg/dL (65-110); Potassium 3.4 mmol/L (3.4-5.0); Sodium 137 mmol/L (137-145)
[2023-07-17 05:08] LABS: Magnesium 1.9 mg/dL (1.6-2.3)
[2023-07-17 05:18] VITALS: BP 107/71; PULSE 69; RESP 16; TEMP 36.1; O2SAT 94
[2023-07-17] MEDS: LEVOTHYROXINE SODIUM 88 MCG TABLET PO (06:09)
[2023-07-17 08:00] VITALS: PULSE 68
[2023-07-17 08:32] LABS: Glucose Point of Care 175 mg/dl (65-105)
[2023-07-17 08:57] VITALS: PULSE 74
[2023-07-17] MEDS: AMIODARONE HCL 200 MG TABLET 400 MG PO (08:57)
[2023-07-17] MEDS: POTASSIUM CHLORIDE 20 MEQ ER TABLET 40 MEQ PO ×2 (08:57→11:04)
--- NOTE | 2023-07-17 08:57 | PM.PNCARD ---
Progress Note: A&P Assessment and Plan (1) CHF exacerbation: Code(s): I50.9 - Heart failure, unspecified Status: Acute (2) Cardiomyopathy: Code(s): I42.9 - Cardiomyopathy, unspecified Status: Acute Plan 67-year-old patient with ischemic cardiomyopathy and paroxysmal AFib. He is hemodynamically better now that he is back in sinus rhythm. We will continue the amiodarone as he will benefit greatly by maintenance of sinus rhythm and I do not believe we should be too concerned about previous abnormal thyroid function tests as this is not a mandatory reason to withhold amiodarone treatment. I will also resume a lower dose of Entresto today at 24/26mg. I believe he is therefore stable enough to be discharged today. My partner Dr. Sierra can see him in follow-up in gradually uptitrate his heart failure medications. I would not resume the beta-dayanna today at the time of discharge for fear of precipitating hypotension. Cornell Wild MD [facility] Subjective Date/time seen: Date of service: 07/17/23 08:57 Interval history: Reason for visit: Acute on chronic heart failure exacerbation, atrial fibrillation HPI: Lance Gray is a 67-year-old male with coronary artery disease, history of inferior ST-elevation [place], status post CABG times 2 (right radial artery graft to the RPDA, SVG to OM 2 on 09/24/2013), type 2 diabetes mellitus, dyslipidemia, and renal insufficiency.? He presents to the hospital now with a chief complaint of shortness of breath.? He's had progressive dyspnea and orthopnea over the past couple of weeks.? Denies any dietary changes or alterations to his medical regimen.? Denies any chest pain, palpitations, syncope, pre-syncope.? In emergency department was noted to be having intermittent episodes of atrial fib/flutter with RVR and was hypotensive.? He has been given IV furosemide, placed on an amiodarone drip, and admitted to the ICU for further management.? Date of service 07/12: In sinus rhythm currently with frequent PACs. Patient reports that his breathing feels better this morning, is able to lay more flat than before. Made 650ccs of urine this morning thus far. Date of service 07/13: He is diuresing well now. Continues to have improvement in shortness of breath. Date of service 07/14/2023: Feeling better today.? Less short of breath.? Has a nose bleed. Date of service 07/15/2023: Continues to feel better. Was able to walk with PT today without significant shortness of breath. Date of service 07/16/2023: Feeling relatively well sitting in the chair watching television patient is in sinus rhythm still with p.o. amiodarone. Date of service 07/17/2023: Asymptomatic feeling well still maintaining sinus rhythm. Off of midodrine and not hypotensive. Exam Const: General: comfortable, no acute distress, alert and awake Orientation/consciousness: patient oriented x3 HENMT: Head: normal to inspection Face/Nose/Sinus: Epistaxis present Other: Nasal cannula in place. Eyes: General: appearance normal, both eyes and all related structures Sclera: sclerae normal Pupils: Equal, round and reactive pupils present Neck: Neck: normal visual inspection and supple Carotids: normal carotid upstroke Resp: Effort & Inspection: normal respiratory effort Auscultation: not clear to auscultation bilaterally, rales and diminished lung sounds Cardio: Rate: regular rate and tachycardic Rhythm: regular rhythm and abnormal rhythm with ectopic beats Heart sounds: S1 normal heart sound present, S2 normal heart sound present and no murmurs GI: Auscultation: normal bowel sounds Skin: General skin exam: normal color Neuro: General: patient oriented x3 Cranial nerves: Yes Equal, round and reactive pupils present Speech: normal speech Extrem: General: normal to inspection and no edema Other: No edema Psych: Appearance: grossly normal Mental Status: mental status grossly normal Affect: normal
[2023-07-17] MEDS: APIXABAN 5 MG TABLET PO (08:58)
[2023-07-17] MEDS: PANTOPRAZOLE 40 MG TABLET PO (08:58)
[2023-07-17] MEDS: ASPIRIN 81 MG ENTERIC TABLET PO (08:58)
[2023-07-17] MEDS: FUROSEMIDE 40 MG TABLET PO (08:58)
--- NOTE | 2023-07-17 09:53 | PM.DS ---
DS: Admitting Diagnosis Discharge Date 07/17/2023 Admitting Diagnosis CHF exacerbation AFib rVR DS: Discharge Diagnosis Discharge Diagnosis (1) CHF exacerbation: Code(s): I50.9 - Heart failure, unspecified Status: Acute (2) Atrial fibrillation with rapid ventricular response: Code(s): I48.91 - Unspecified atrial fibrillation Status: Acute DS: Summary Hospital Course Hospital Course: Lance Gray is a 67-year-old male with coronary artery disease, history of inferior ST-elevation CT, status post CABG times 2 (right radial artery graft to the RPDA, SVG to OM 2 on 09/24/2013), type 2 diabetes mellitus, dyslipidemia, and renal insufficiency.? He presents to the hospital now with a chief complaint of shortness of breath.? He's had progressive dyspnea and orthopnea over the past couple of weeks.? Denies any dietary changes or alterations to his medical regimen.? Denies any chest pain, palpitations, syncope, pre-syncope.? In emergency department was noted to be having intermittent episodes of atrial fib/flutter with RVR and was hypotensive.? He has been given IV furosemide, placed on an amiodarone drip, and admitted to the ICU for further management.? cardiology was consulted. Started on oral amiodarone once he was back in sinus rhythm. Lasix dose increased. also resume a lower dose of Entresto today at 24/26mg.? Patient is stable to be discharged today.? As per cardiology recommendations, do not resume the beta-dayanna at the time of discharge for fear of precipitating hypotension. Time Spent with Patient Time attestation: Total time spent providing and/or coordinating discharge services: DS: Data Data Completed and Pending Labs on day of discharge: Labs from last 24 hours 07/17/23 07/17/23 07/17/23 08:18 03:51 03:48 WBC 5.4 RBC 4.36 L Hgb 14.4 Hct 43.4 MCV 99.5 MCH 33.0 MCHC 33.2 RDW 14.6 H Plt Count 166 MPV 10.1 Sodium 137 Potassium 3.4 Chloride 99 Carbon Dioxide 29 Anion Gap 9 BUN 42 H Creatinine 1.50 H Estim Creat Clear Calc 54 Estimated GFR 47 L Glucose 128 H POC Capillary Glucose 175 H Calcium 8.7 Magnesium 1.9 0807/16/23 07/16/23 19:47 16:48 11:52 WBC RBC Hgb Hct MCV MCH MCHC RDW Plt Count MPV Sodium Potassium Chloride Carbon Dioxide Anion Gap BUN Creatinine Estim Creat Clear Calc Estimated GFR Glucose POC Capillary Glucose 199 H 153 H 249 H Calcium Magnesium Discharge Plan Discharge Consulting providers: Anastacio Woodruff; Usama Chandler Discharging Clinician: Slick Jernigan Anticipated Discharge Date/Time: 07/17/23 09:51 Patient Disposition: Home, Self-Care Activity: no preference Diet: heart healthy Patient Instructions: Antibiotic Form, Amiodarone (By injection), Heart Failure (GEN), Cardiac Rehabilitation (GEN), Safe Use of Anticoagulants (GEN), Blood Thinners (GEN) Stand Alone Forms: General Discharge Information Follow-up/Referrals: Bipin Hayes MD [Primary Care Provider] - Anastacio Woodruff MD [Physician] - Discharge Medications: New furosemide 40 mg Tablet 40 mg PO BID Qty: 60 0RF Entresto 24-26 mg Tablet 1 tablet PO Q12HR Qty: 60 0RF amiodarone [Pacerone] 200 mg Tablet 400 mg PO BID Qty: 60 0RF Continued (DME) blood sugar diagnostic Strip See Rx Instructions .ROUTE .MEDSUPPLY Qty: 100 5RF Rx Instructions: As directed to check blood sugar once daily Eliquis 5 mg tablet 5 mg PO BID Hold Instructions: Resume on 10/29/20. OK to resume this in AM on Tue. this week. allopurinol 100 mg tablet 200 mg PO HS Hold Instructions: Resume on 10/31/20. ok to resume on Tue. later this week. ergocalciferol (vitamin D2) 1,250 mcg (50,000 unit) capsule 50,000 unit PO MONTHLY Rx Instructions: Patient states he
[2023-07-17] MEDS: SACUBITRIL/VALSARTAN 24-26 MG TABLET 1 TAB PO (11:04)
--- OUTSIDE RECORDS SUMMARY | 2023-08-30 11:58 | XMS_ITS | Patient Health Record ---
Author Name Unknown Organization [facility] Office Address [address] [place] [address] Care Team Providers Care Telephone Maintenance Mechanic Name Role Phone Prince Lord Unavailable [phone] REASON FOR REFERRAL No Information MEDICATIONS Medication SIG (Take, Route, Frequency, Duration) Notes Start Date End Date Status Allopurinol 100 MG 2 tablet Orally Once a day for 90 days 03/25/2023 01/31/2024 Active Vitamin D (Ergocalciferol) 66692 UNIT 1 capsule Orally ONCE A WEEK for 90 days 02/14/2023 02/09/2024 Active SOCIAL HISTORY Sex Assigned At : Social History Observation Description Sex Assigned At Unknown PROBLEMS Problem Type ICD Code Onset Dates Problem Status W/U Status Risk SNOMED Code Notes Problem Type 2 diabetes mellitus with hyperglycemia (E11.65) Active confirmed Hyperglycemia d ue to type 2 diabetes mellitus ([id number]) Problem Secondary hyperparathyroid ism, not elsewhere classified (E21.1) Active confirmed Secondary hyperparathyroidism (14055360) Problem Renal osteodystrophy (N25.0) Active confirmed Renal osteodyst rophy (95658928) Problem Proteinuria, unspecified (R80.9) Active confirmed Proteinuria (77750114) Problem Essential hypertension (I10) Active confirmed Essential hypertension (64692855)
== END 2023-07-17 11:15 | disposition home or self-care (01) | DRG 291 ==
LOC: ANHED 08:29 → ANHIMU 10:36 → ANHICU 11:01 → ANH2MED 07-14 13:53
PROVIDERS: Internal Medicine; Nurse Practitioner; Physician Assistant; Admitting Provider Internal Medicine; Emergency Provider Emergency Medicine; PCP Family Medicine; Visit Provider Hospitalist
DX: I13.0 Hypertensive heart and chronic kidney disease with heart failure and stage 1 through stage 4 chronic kidney disease, or unspecified chronic kidney disease (principal); I50.23 Acute on chronic systolic (congestive) heart failure; N17.9 Acute kidney failure, unspecified; I48.92 Unspecified atrial flutter; I48.0 Paroxysmal atrial fibrillation; E11.22 Type 2 diabetes mellitus with diabetic chronic kidney disease; N18.9 Chronic kidney disease, unspecified; R09.02 Hypoxemia; I25.10 Atherosclerotic heart disease of native coronary artery without angina pectoris; E03.9 Hypothyroidism, unspecified; I25.5 Ischemic cardiomyopathy; I95.9 Hypotension, unspecified; E78.5 Hyperlipidemia, unspecified; E87.5 Hyperkalemia; R04.0 Epistaxis; E66.9 Obesity, unspecified; Z68.33 Body mass index [BMI] 33.0-33.9, adult; I25.2 Old myocardial infarction; Z95.1 Presence of aortocoronary bypass graft; Z79.82 Long term (current) use of aspirin; Z79.01 Long term (current) use of anticoagulants; Z87.891 Personal history of nicotine dependence; Z90.49 Acquired absence of other specified parts of digestive tract
CPT/HCPCS: 36415; 71045; 71046; 76775; 80048; 80053; 82550; 82948; 83735; 83880; 84439; 84443; 84480; 84484; 85025; 85027; 85610; 85730; 93005; 94618; 97110; 97116; 97161; 97165; 99285; A9270; C8929; J0282; J1815; J1940; J3475; J3480; J7040; P9047; Q9957

== ENCOUNTER 2024-06-29 11:14 | Inpatient (IN) | payer MEDICARE, OTHER, SELFPAY ==
[2024-06-29] VITALS (27 sets, daily range): BP systolic 86–117; BP diastolic 40–96; PULSE 83–164; RESP 16–37; TEMP 36.4–36.7; O2SAT 89–96; BMI 29.2
--- NOTE | ~2024-06-29 | XR_ITS ---
EXAMINATION: XR chest 2V DATE: 06/29/2024 12:40 INDICATION: Dyspnea. TECHNIQUE: Frontal and lateral views of the chest were obtained. COMPARISON: Chest 2 views 07/14/2023, chest CT 05/17/2019 FINDINGS: The lung volumes are normal. There is a diffuse interstitial pattern in the lungs with a lo wer lung predominance. No pleural effusion or pneumothorax. Cardiomegaly is noted. Median sternotomy wires and mediastinal surgical clips are seen, likely from prior coronary artery bypass grafting. Rylan gical clips in the right upper quadrant are likely from cholecystectomy. IMPRESSION: 1. Diffuse interstitial pattern again seen in the lungs, consistent with mild pulmonary edema and/or chronic interstitial lung disease. 2. Cardiomegaly. Reviewed, dictated and finalized at location A. IMPRESSION: 1. Diffuse interstitial pattern again seen in the lungs, consistent with mild p ulmonary edema and/or chronic interstitial lung disease. 2. Cardiomegaly.
--- NOTE | ~2024-06-29 | XR_ITS ---
EXAMINATION: XR chest 1V portable DATE: 06/30/2024 09:01 INDICATION: Hypoxia. TECHNIQUE: A single frontal view of the chest was obtained. COMPARISON: Chest 2 views 06/29/2024, chest CT 05/17/19 FINDINGS: There are interstitial opacities in the mid and lower lung zones. No pleural effusion or pn eumothorax. Cardiomegaly is noted. Median sternotomy wires are noted. IMPRESSION: 1. Stable interstitial opacities in the mid and lower lung zones, consistent with mild pulmonary rakel a and/or chronic interstitial lung disease. 2. Cardiomegaly. Reviewed, dictated and finalized at location A. IMPRESSION: 1. Stable interstitial opacities in the mid and lower lung zones, consistent wi th mild pulmonary edema and/or chronic interstitial lung disease. 2. Cardiomegaly.
--- NOTE | 2024-06-29 11:15 | ECG_ITS ---
Test Date: 2024-06-29 11:21:00 Measurements Intervals [place] Rate: 163 P: 0 ID: 0 QRS: -14 QRSD: 143 T: -15 QT: 305 QTc: 502 Interpretive Statements ATRIAL FLUTTER/TACHYCARDIA WITH RAPID VENTRICULAR RESPONSE INDETERMINATE AXIS RIGHT BUNDLE BRANCH BLOCK [120+ ms QRS DURATION, UPRIGHT V1, 40+ ms S IN I/aVL/V4/V5/V6] CONSIDER PREVIOUS INFERIOR INFARCTION ABNORMAL ECG No previous ECG available for comparison Electronically Signed On 06-29-2024 11:38:56 CDT by Cornell Wild M.D.
[2024-06-29 11:35] LABS: Basophils Absolute Auto 0.1 K/mm3 (0.0-0.1); Basophils Percent Auto 1.1 % (0.2-1.2); Eosinophils Absolute Auto 0.2 K/mm3 (0-0.3); Eosinophils Percent Auto 2.4 % (0-4.4); Hematocrit 41.1 % (42.0-52.0); Hemoglobin 13.3 g/dL (14.0-18.0); Immature Granulocyte Absolute 0.03 K/mm3 (0.00-0.031); Immature Granulocyte Percent A 0.5 % (0-0.5); Lymphocytes Absolute Auto 1.08 K/mm3 (0.9-3.2); Lymphocytes Percent Auto 16.4 % (18.3-44.2); Mean Corpuscular HGB Conc 32.4 g/dl (32-36); Mean Corpuscular Volume 95.8 fl (80-100); Mean Platelet Volume 9.8 fl (7.4-10.4); Monocytes Absolute Auto 0.7 K/mm3 (0.1-0.6); Neutrophils Absolute Auto 4.6 K/mm3 (1.3-6.7); Neutrophils Percent Auto 69.6 % (45.5-73.1); Platelet Count Result 197 k/mm3 (150-375); Red Blood Count 4.29 M/mm3 (4.6-6.20); White Blood Count 6.6 K/mm3 (4.5-10.0)
[2024-06-29 11:45] LABS: INR 2.3; Prothrombin Time 25.9 Seconds (11.1-14.7)
[2024-06-29] MEDS: METOPROLOL TARTRATE INJ 5 MG/5 ML VIAL IV PUSH (11:45)
[2024-06-29 11:46] LABS: Partial Thromboplastin Time 35.9 Seconds (22.3-36.8)
[2024-06-29 11:50] LABS: Alanine Aminotransferase 20 U/L (6-50); Albumin Level 4.5 g/dL (3.5-5.1); Alkaline Phosphatase 122 U/L (38-126); Anion Gap 11 mmol/L (4-12); Aspartate Amino Transferase 31 U/L (17-59); Bilirubin,Total 3.9 mg/dL (0.2-1.3); Blood Urea Nitrogen 33 mg/dL (9-20); Calcium 9.1 mg/dL (8.4-10.2); Carbon Dioxide 22 mmol/L (22-30); Chloride 105 mmol/L (98-107); Estimated CRCL calculation 57 ml/min; Estimated Glomerular Filt Rate 47; Glucose 131 mg/dL (65-110); Potassium 4.1 mmol/L (3.4-5.0); Sodium 138 mmol/L (137-145)
[2024-06-29 12:02] LABS: NT Pro B Type Natriuretic Pept 2680 pg/mL (19.9-100); Troponin I < 0.012 ng/mL (0.000-0.034)
--- NOTE | 2024-06-29 12:13 | ECG_ITS ---
Test Date: 2024-06-29 12:16:16 Measurements Intervals [place] Rate: 84 P: 48 RI: 174 QRS: -14 QRSD: 141 T: 100 QT: 422 QTc: 500 Interpretive Statements SINUS RHYTHM WITH OCCASIONAL VENTRICULAR PREMATURE COMPLEXES INDETERMINATE AXIS RIGHT BUNDLE BRANCH BLOCK [120+ ms QRS DURATION, UPRIGHT V1, 40+ ms S IN I/aVL/V4/V5/V6] CONSIDER PREVIOUS INFERIOR INFARCTION ABNORMAL ECG Compared to ECG 06/29/2024 11:21:00 SINUS RHYTHM REPLACES ATRIAL FLUTTER Electronically Signed On 06-29-2024 18:18:04 CDT by Cornell Wild M.D.
--- NOTE | 2024-06-29 12:27 | ED.SOB ---
HPI - SOB/Dyspnea General Chief Complaint: Shortness of Breath/Dyspnea Stated Complaint: dyspnea Time Seen by Provider: 06/29/24 11:30 History of Present Illness HPI Narrative: Patient is a 68-year-old male who presents ER with shortness of breath. Ongoing for 3 days. Worse with lying down flat. No exertional shortness of breath or chest pain. He notices heart rate was elevated today and came in. Here his heart rate is in the 160s. Patient takes carvedilol home. He has no chest pain. No syncope or lightheadedness. He is anticoagulated on apixaban. He sees Dr. Sierra. Related Data Home Medications Medication Instructions Recorded Confirmed aspirin 81 mg tablet,delayed 81 mg PO DAILY 11/05/19 05/21/24 release (Adult Aspirin Regimen) apixaban 5 mg tablet (Eliquis) 5 mg PO BID 05/28/20 05/21/24 ergocalciferol (vitamin D2) 1,250 50,000 unit PO MONTHLY 10/14/20 05/21/24 mcg (50,000 unit) capsule allopurinol 100 mg tablet 200 mg PO HS 05/05/23 05/21/24 Allergies Allergy/AdvReac Type Severity Reaction Status Date / Time No Known Allergies Allergy Verified 05/21/24 13:31 Review of Systems Review of Systems: All systems reviewed & are unremarkable except as noted in HPI and below Constitutional: Constitutional: Reports no additional constitutional complaints ENT: Reports system reviewed and no additional complaints, except as documented Cardiovascular: Cardiovascular: Denies chest pain, Reports rapid heart rate and Denies radiating jaw, neck or arm pain Comments: orthopnea Respiratory: Respiratory: Denies chest congestion, Denies cough, Reports dyspnea and Denies wheezing Gastrointestinal: Gastrointestinal: Reports no additional gastrointestinal complaints Integumentary/Breasts: Skin/Breast: Reports system reviewed and no additional complaints, except as docu PMFSH Past Medical History Medical History (Updated 06/29/24 @ 15:10 by Jovani Phillips MD) Acquired hypothyroidism Chronic anticoagulation Chronic kidney disease CKD (chronic kidney disease), stage III Gout Heart failure with reduced ejection fraction Hyp ht/kd NOS st V w hf Hyperlipidemia Hypertension Obesity Paroxysmal atrial fibrillation Shingles Type 2 diabetes mellitus Type 2 diabetes mellitus with other diabetic kidney complication Surgical History Surgical History History of laparoscopic cholecystectomy (2020) History of two vessel coronary artery bypass graft Family History Family History Father Family history of cardiovascular disease Patient's father is , Onset Age: 72 Mother Family history of arthritis Family history of Alzheimer's disease Sibling Family history of cardiovascular disease Parkinsons disease Social History Social History Social History: Surrogate medical decision maker: Padmaja Gray, sister. Code status: Full code. Smoking packs per day: 1 Smoking cigarettes per day: 20.0 Years smoked: 20 Smoking pack-years: 20.00 Smoking status: Former smoker Tobacco type: cigarettes Smoking end date: 11/28/11 Alcohol intake: never Substance use: never Substance use type: does not use Last use: 2011 Lack of Transportation: No Lack of Food: Never True Current Housing: I Have Housing Concerned About Future Housing: No Difficulty Paying Gas/Electric Bills: No Difficulty Paying for Meds: No Currently Unemployed: No Education: High School Diploma/GED Difficulty w/ Childcare or Family Care: No Living arrangements: alone Occupation/Education: occupation Additional occupation/education comments: [employer] Spiritual care concerns: Yes ([facility] in [place], [place]) Exam Narrative: GENERAL: Ill-appearing, obese, and in no acute distress. HEAD: Normocephalic, at
[2024-06-29] MEDS: SODIUM CHLORIDE 0.9% IV 500 ML 999 ML IV CONT (13:46)
[2024-06-29 14:55] LABS: Lactic Acid Reflex 1.6 mmol/L (0.7-2.0)
[2024-06-29 15:03] LABS: Add Urine Microscopic? YES; Appearance Urine Clear (Clear); Bacteria Urine None Seen /hpf; Bilirubin Urine Negative (Negative); Blood Urine Negative (Negative); Color Urine Yellow (Yellow); Glucose Urine UA Negative (Negative); Ketones Urine Negative (Negative); Leukocyte Esterase Ur Negative LEU/UL (Negative); Nitrate Urine Negative (Negative); Protein Urine 1+ mg/dL (Negative); RBC Urine 0-2 /hpf (0-2); Specific Grav Ur 1.015 (1.001-1.035); Squamous Epithelial Cell Urine None Seen /hpf (Few); WBC Urine 0-5 /hpf (0-3); pH Urine 5.5 (5.0-9.0)
[2024-06-29 15:27] LABS: Procalcitonin 0.1 ng/mL
--- NOTE | 2024-06-29 15:43 | PM.IMHP ---
H&P: HPI History of Present Illness Date/Time: 06/29/24 15:43 Chief Complaint: Shortness of Breath Narrative: 68 y/o M presents here with shortness of breath with PMH of CHF, [place], acquired hypothyroidism, CKD, gout, HLD, HTN, paroxysmal AFib, and type 2 diabetes. The patient presents here from home (currently lives with his sister) for further evaluation shortness of breath. He reports onset of shortness of breath one week ago. Shortness of breath worsens with lying flat. No change with exertion. Improves with sitting upright and laying in his recliner vs his bed. Shortness of breath seems mildly improved today, tolerating laying flat more. 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 Denies associated chest pain, palpitations, nausea or vomiting, diaphoresis, or increased lower extremity swelling. Patient reports his BP has been 112-155/75-80 for the past few weeks. He reports he has been feeling intermittently dizzy, PCP consulted with patient's community health nursing director and dose was decreased 3 weeks ago and dizziness resolved. Has been off amiodarone since Aug, unsure why medication was discontinued. Initial VS at presentation: 97.9? F, HR 161, RR 18, 117/96, and 95% on RA. ED workup showed: No leukocytosis, hemoglobin 13.3, PTT 25.9, creatinine 1.5 and GFR 47 (previously 1.85 and GFR 40 on 05/07/2024), glucose 131, total bilirubin 3.9, normal LFTs, initial troponin negative, BNP 2005 on 80, lactic 1.6, procalcitonin 0.1. UA showed 1+ protein. CXR showed diffuse interstitial pattern again seen in the lungs (mild pulmonary edema and or chronic interstitial lung disease) and cardiomegaly. Initial EKG showed atrial flutter/tachycardia with RVR, rate 163, indeterminate axis, RBBB, consider previous inferior infarction. Review of Systems Review of Systems: All systems reviewed & are unremarkable except as noted in HPI and below [facility] Past Medical History Medical History CAD (coronary artery disease) Cardiomyopathy Chronic anticoagulation CKD (chronic kidney disease), stage III Former smoker Gout Heart failure with reduced ejection fraction HLD (hyperlipidemia) HTN (hypertension) Hyp ht/kd NOS st V w hf Hypothyroidism Obesity (BMI 30-39.9) [place] (myocardial infarction) Paroxysmal atrial fibrillation Shingles Type 2 diabetes mellitus with other diabetic kidney complication Surgical History Surgical History History of laparoscopic cholecystectomy (2020) S/P CABG (coronary artery bypass graft) Family History Family History Father Family history of cardiovascular disease Patient's father is , Onset Age: 72 Mother Family history of arthritis Family history of Alzheimer's disease Sibling Family history of cardiovascular disease Parkinsons disease Social History Social History Social History: Surrogate medical decision maker: Padmajadonnell Gray, sister. Code status: Full code. Smoking packs per day: 1 Smoking cigarettes per day: 20.0 Years smoked: 20 Smoking pack-years: 20.00 Smoking status: Former smoker Tobacco type: cigarettes Smoking end date: 11/28/11 Alcohol intake: former Substance use: never Substance use type: does not use Last use: 2011 Do You Feel Safe in your Home?: Yes Lack of Transportation: No Lack of Food: Never True Current Housing: I Have Housing Concerned About Future Housing: No Difficulty Paying Gas/Electric Bills: No Difficulty Paying for Meds: No Currently Unemployed: No Education: High School Diploma/GED Difficulty w/ Childcare or Family Care: No Living arrangements: alone Occupation/Education: occupation Additional occupation/education comments: [employer]
--- NOTE | 2024-06-29 15:49 | ADMGEN ---
This patient, Lance Gray, was admitted to Intensive Care Unit-3. Patient/family oriented to hospital policies and general routines including ID bracelet, bed and alarms, visiting hours, pain management, procedures, bathroom and other care routines, personal items, smoking policy, room service/diet, and visiting hours. Information on how to activate the Rapid Response Team has been discussed. Patient/Family are encouraged to report perceived risks to care and to ask questions if they do not understand what they are told or what they should do.
[2024-06-29 16:03] LABS: Glucose Point of Care 123 mg/dl (65-105)
[2024-06-29 17:31] LABS: MRSA (PCR) NOT DETECTED (NOT DETECTE)
[2024-06-29 19:46] LABS: Glucose Point of Care 138 mg/dl (65-105)
[2024-06-29 22:57] LABS: Troponin I < 0.012 ng/mL (0.000-0.034)
[2024-06-29] MEDS: APIXABAN 5 MG TABLET PO (23:12)
[2024-06-29] MEDS: glipiZIDE 5 MG TABLET PO (23:13)
[2024-06-30] VITALS (24 sets, daily range): BP systolic 87–122; BP diastolic 69–90; PULSE 78–102; RESP 17–36; TEMP 36–37; O2SAT 89–96
--- NOTE | 2024-06-30 | ECHO_ITS ---
Patient Info Name: Lance Gray Age: 68 years : 1955 Gender: Male Ht: 70 in Wt: 204 lbs BSA: 2.16 m2 HR: 87 bpm BP: 99 / 87 mmHg Heart Rhythm: Sinus Rhythm Technical Quality: Fair Exam Date: 06/30/2024 8:05 AM Exam Location: Echo Lab Patient Status: Inpatient Admit Date: 06/29/2024 Staff Ordering Physician: Monica Domingo APRN Sheet Sorter: Sahil Pisano RDCS Attending Provider: Jennifer Irvin MD Referring Physician: Jose L ROGERS; Exam Type: CA echo dop color flow w con Study Info Indications - known CHF - Pulmonary edema - SOB Complete two-dimensional, color flow and Doppler transthoracic echocardiogram is performed with contrast to opacify the left ventricle and to improve the deliniation of the left ventricle endocardial borders. Contrast/Agitated Saline Contrast/Ag. Saline: Definity Amount: 7.00 ml Existing IV Access: Yes Summary 1. Four-chamber dilated cardiomyopathy. 2. Severe left and right ventricular systolic dysfunction. 3. Mild mitral and moderate tricuspid regurgitation. 4. Sinus rhythm. Left Ventricle Left ventricular chamber dimension is moderately enlarged. Left ventricular systolic function is severely reduced, estimated at 20-25%. Left ventricular septal wall motion is abnormal with septal motion related to bundle branch block. The left ventricular diastolic function is grade I diastolic dysfunction. Right Ventricle Right ventricular chamber dimension is severely enlarged. Right ventricular systolic function is reduced. Left Atria Left atrial chamber dimension is moderately enlarged. Right Atria Right atrial chamber dimension is moderately enlarged. Aortic Valve The aortic valve is normal. Pulmonic Valve The pulmonic valve is not well visualized. Mitral Valve The mitral valve has normal leaflets. There is mild mitral valve regurgitation. Tricuspid Valve The tricuspid valve leaflets are normal. There is mild to moderate tricuspid valve regurgitation. Pericardium/Pleural The pericardium appears normal. Aorta The aortic root size at the sinus of Valsalva is normal. Left Ventricular Outflow Tract Name Value Normal LVOT 2D LVOT Diameter 2.31 cm LVOT Doppler LVOT Peak Gradient 2 mmHg LVOT Mean Gradient 1 mmHg LVOT VTI 11.69 cm LVOT VTI/AV VTI Ratio 0.90 LVOT Stroke Volume 48.97 ml LVOT CO 4.20 l/min LVOT CI 1.95 L/min/m2 Pulmonic Valve Name Value Normal PV Doppler PV Peak Gradient 2 mmHg Mitral Valve Name Value Normal MV Doppler
[2024-06-30 01:15] LABS: Troponin I < 0.012 ng/mL (0.000-0.034)
--- NOTE | 2024-06-30 03:44 | PC.NURSE ---
Patient educated on oxygen therapy and importance of keeping oxygen in place multiple times overnight. Patient alert & oriented and has been found with O2 off multiple times overnight. Patient having periods of tachypnea at times however, he does not appear to be in any distress.
--- NOTE | 2024-06-30 03:59 | PC.NURSE ---
Patient reports urinating quite a bit while in the ER. No output recorded in medical record. Per dayshift RN, ER also reported that patient did void in ER.
[2024-06-30] MEDS: LEVOTHYROXINE SODIUM 88 MCG TABLET PO (05:37)
[2024-06-30 06:59] LABS: Hematocrit 39.4 % (42.0-52.0); Hemoglobin 12.6 g/dL (14.0-18.0); Mean Corpuscular Hemoglobin 30.7 pg (26-34); Mean Corpuscular Volume 96.1 fl (80-100); Mean Platelet Volume 9.5 fl (7.4-10.4); Platelet Count Result 171 k/mm3 (150-375); White Blood Count 5.5 K/mm3 (4.5-10.0)
[2024-06-30 07:14] LABS: Alanine Aminotransferase 21 U/L (6-50); Albumin Level 3.9 g/dL (3.5-5.1); Alkaline Phosphatase 109 U/L (38-126); Anion Gap 11 mmol/L (4-12); Aspartate Amino Transferase 29 U/L (17-59); Bilirubin,Total 3.8 mg/dL (0.2-1.3); Blood Urea Nitrogen 34 mg/dL (9-20); Calcium 8.8 mg/dL (8.4-10.2); Carbon Dioxide 22 mmol/L (22-30); Chloride 103 mmol/L (98-107); Estimated CRCL calculation 45 ml/min; Estimated Glomerular Filt Rate 47; Glucose 104 mg/dL (65-110); Lactic Acid Reflex 1.1 mmol/L (0.7-2.0); Magnesium 1.9 mg/dL (1.6-2.3); Phosphorus 3.7 mg/dL (2.5-4.5); Sodium 136 mmol/L (137-145)
[2024-06-30 07:41] LABS: Glucose Point of Care 114 mg/dl (65-105)
[2024-06-30] MEDS: EMPAGLIFLOZIN 25 MG TABLET PO (08:19)
[2024-06-30] MEDS: APIXABAN 5 MG TABLET PO ×2 (08:19→21:18)
[2024-06-30] MEDS: ASPIRIN 81 MG ENTERIC TABLET PO (08:19)
[2024-06-30] MEDS: glipiZIDE 5 MG TABLET PO ×2 (08:19→21:17)
[2024-06-30] MEDS: FUROSEMIDE INJ 40 MG/4 ML VIAL IV PUSH ×2 (08:20→15:07)
[2024-06-30] MEDS: SITagliptin PHOSPHATE 100 MG TABLET PO (08:30)
--- NOTE | 2024-06-30 08:37 | WPDCNINT ---
Assessment and Plan Assessment and plan (1) Acute exacerbation of CHF (congestive heart failure): Qualifiers: Heart failure type: combined systolic and diastolic Qualified Code(s): I50.43 - Acute on chronic combined systolic (congestive) and diastolic (congestive) heart failure Code(s): I50.9 - Heart failure, unspecified Status: Acute Assessment and Plan: Patient has chronic systolic and diastolic CHF secondary to ischemic cardiomyopathy Appears to have decompensated which may have been secondary to atrial flutter Most recent echo in 07/20 Summary 1. Technically difficult exam, definity contrast used to improve visualization. 2. Four-chamber cardiac dilation. 3. Severe left ventricular systolic dysfunction. EF 20-25% 4. Severe right ventricular systolic dysfunction. 5. Biatrial dilation. 6. Mild MR. 7. Kacz-yn-wfsrizqi tricuspid regurgitation. Repeat echo is being done and pending Continue aspirin, Lipitor, Jardiance Coreg and Entresto on hold due to borderline blood pressure Start Lasix. May need vasopressor support (2) Hypotension: Qualifiers: Hypotension type: unspecified hypotension type Qualified Code(s): I95.9 - Hypotension, unspecified Code(s): I95.9 - Hypotension, unspecified Status: Acute Assessment and Plan: Patient has borderline blood pressure since conversion sinus rhythm. He has not required any vasopressors IV fluid bolus at this time. His lactic acid level and procalcitonin level was negative. His soft blood pressure prevent diuresis till now but patient be started on diuretics and blood pressure will be monitored closely. He may need vasopressor support (3) CKD (chronic kidney disease): Qualifiers: Chronic kidney disease stage: stage 3 (moderate) Chronic kidney disease stage 3 subtype: unspecified whether 3a or 3b Qualified Code(s): N18.30 - Chronic kidney disease, stage 3 unspecified Code(s): N18.9 - Chronic kidney disease, unspecified Status: Chronic Assessment and Plan: Creatinine appears to be at baseline Monitor urine output electrolytes and creatinine (4) CHF (congestive heart failure): Code(s): I50.9 - Heart failure, unspecified Status: Acute Assessment and Plan: See above (5) Atrial flutter with rapid ventricular response: Code(s): I48.92 - Unspecified atrial flutter Status: Acute Assessment and Plan: Patient has history of proximal AFib and presented with a flutter with RVR. Converted to sinus rhythm with IV metoprolol P.r.n. IV metoprolol ordered but p.o. Coreg held due to soft blood pressure Continue apixaban (6) Type 2 diabetes mellitus: Qualifiers: Diabetes mellitus terminologist insulin use: without jail use Diabetes mellitus complication status: with kidney complications Diabetes mellitus complication detail: with chronic kidney disease Chronic kidney disease stage: stage 3 (moderate) Chronic kidney disease stage 3 subtype: unspecified whether 3a or 3b Qualified Code(s): E11.22 - Type 2 diabetes mellitus with diabetic chronic kidney disease; N18.30 - Chronic kidney disease, stage 3 unspecified Code(s): E11.9 - Type 2 diabetes mellitus without complications Status: Chronic Assessment and Plan: Continue Jardiance, sitagliptin and glipizide Add sliding scale (7) Hypothyroidism: Code(s): E03.9 - Hypothyroidism, unspecified Status: Acute Assessment and Plan: Continue levothyroxine Plan DVT prophylaxis -apixaban Nutrition -diet ordered Code Status - Full Code Total Critical Care Time - 30 minutes Due to a high probability of clinically significant, life threatening deterioration, the patient required my highest level of preparedness to intervene emergently and I personally spent this critical care time directly and personally managing the patient. This critical care time included obtaining
--- NOTE | 2024-06-30 08:54 | PM.CNCAR ---
Assessment and Plan Assessment and plan (1) CHF (congestive heart failure): Code(s): I50.9 - Heart failure, unspecified Status: Acute (2) Atrial flutter with rapid ventricular response: Code(s): I48.92 - Unspecified atrial flutter Status: Acute Plan This is a 68-year-old man with a severe ischemic cardiomyopathy as detailed above and in previous notes. He enters the hospital symptomatic with worsening heart failure not surprisingly with atrial flutter with RVR. Given his severe underlying cardiomyopathy this arrhythmia as well as atrial fibrillation which he has had in the past will be poorly tolerated. In my opinion he needs to be placed back on amiodarone treatment and it should not be stopped because of thyroid function abnormalities. He after this needs to be placed step by step back on his guideline directed medical therapy for his low ejection fraction. This gentleman when he comes to the office is generally hypotensive but asymptomatic. It is very important that his heart failure medications be gradually resumed while he is in the hospital. For now I will place him on an oral loading dose of amiodarone. Obviously apixaban is to be continued as well Cornell Wild MD [facility] History of Present Illness History of Present Illness Consult date/time: 06/30/24 08:54 Reason For Visit: Heart Failure Narrative: This is a 68-year-old man that I am seeing at the request of the hospitalist's to assist with management of atrial arrhythmias and congestive heart failure. He is known to Dr. Sierra of our practice and I have seen this patient in the past when he has been hospitalized here at [place] with heart failure and arrhythmias. The patient contacted our office yesterday reporting that he has been feeling poorly for the last week to 10 days with increasing shortness of breath and orthopnea. He was not specifically experiencing palpitations but yesterday when he took his pulse he noted that it was rapid and contacted our office nurses and was advised to come to the emergency room for evaluation. In the ED found to be in atrial flutter with rapid ventricular response and right bundle branch block. He was given a dose of intravenous metoprolol which converted him to sinus rhythm. He was more comfortable after that but he was hypotensive and was admitted to the hospital for further evaluation. He is reporting no significant symptomatology at this moment. He is cardiac history dates back to August of 2013 when he presented to this hospital with acute inferior ST segment elevation [place]. Emergency PCI of right coronary artery was attempted unsuccessfully or with a suboptimal result because of severe proximal tortuosity and ectasia of the vessel. He was transferred to [facility] where he underwent surgical revascularization receiving a radial artery graft to the [facility] and a saphenous vein graft to the largest OM, OM 2. He has done well with respect to his ischemic problems since then but he does have poor left ventricular systolic function. This has gradually declined in the years that followed his bypass operation his current ejection fraction in last several years is in the range of 20-25%. He also has a history of atrial fibrillation and for this was placed on amiodarone treatment. His TSH level was found to be elevated in the office in the drug was stopped by Dr. Sierra. He thinks it was stopped about a year ago. His heart failure regimen consists of moderate dose of carvedilol, Entresto, Jardiance and furosemide. His current systolic blood pressure is 106 and he appears to be relatively comfortable. Review of Systems Constitutional: Constitutional: Reports lethargy Eyes: Eyes: Reports no additional eye complaints ENT: Reports system reviewed and no additional complaints, except as documented Cardiovascular: Cardiovascular: Reports as per HPI Comments: Orthopnea as described above Respiratory: Re
[2024-06-30] MEDS: PERFLUTREN LIPID MICROSPHERES 1.5 ML VIAL DILUTED TO 10 ML TOTAL VOLUME IV PUSH (09:05)
--- NOTE | 2024-06-30 09:06 | IVDEFINITY ---
Prior to administration of IV Definity the patient was educated on the risks and benefits of the imaging enhancing agent including potential adverse side effects. The patient verbalized understanding. Allergies were verified. No exclusion criteria were identified and at least one of the following inclusion criteria were met: 1) physician request, 2) patient technically difficult to image (per the [place] [employer] guidelines of two or more segments not discernable within the apical view), or 3) questionable left ventricular function. ?
[2024-06-30] MEDS: AMIODARONE HCL 200 MG TABLET 400 MG PO ×3 (09:30→21:17)
[2024-06-30 11:47] LABS: Glucose Point of Care 112 mg/dl (65-105)
--- NOTE | 2024-06-30 15:01 | PM.IMPN ---
Progress Note: A&P Assessment and Plan (1) Acute exacerbation of CHF (congestive heart failure): Qualifiers: Heart failure type: combined systolic and diastolic Qualified Code(s): I50.43 - Acute on chronic combined systolic (congestive) and diastolic (congestive) heart failure Code(s): I50.9 - Heart failure, unspecified Status: Acute Assessment and Plan: Patient has chronic systolic and diastolic CHF secondary to ischemic cardiomyopathy Appears to have decompensated which may have been secondary to atrial flutter Echo showing four chamber dilation, severe LV/RV systolic dysfxn with EF 20-25%, Grade I diastolic dysfxn, biatrial dilation, mild MR, moderate TR Started IV lasix. UOP 3550 today so far. Clinical improvement. CXR showing stable interstitial opacities mid and lower lung zones Continue IV lasix. Continue Empaglifloxin. Resume Coreg, Spironolactone and Entresto as BP allows. (2) Atrial flutter with rapid ventricular response: Code(s): I48.92 - Unspecified atrial flutter Status: Acute Assessment and Plan: Patient has history of proximal AFib and presented with a flutter with RVR. He converted to sinus rhythm with IV metoprolol once in the ED P.r.n. IV metoprolol ordered but p.o. Coreg held due to soft blood pressure Continue home apixaban (3) Hypotension: Qualifiers: Hypotension type: unspecified hypotension type Qualified Code(s): I95.9 - Hypotension, unspecified Code(s): I95.9 - Hypotension, unspecified Status: Acute Assessment and Plan: Patient had borderline blood pressure since conversion sinus rhythm. He received fluid bolus in ED for soft BP He has not required any vasopressors or IV fluid bolus since being in the ED His lactic acid level and procalcitonin level were negative. BP better now. Follow and resume other medications as tolerated (4) CKD (chronic kidney disease): Qualifiers: Chronic kidney disease stage: stage 3 (moderate) Chronic kidney disease stage 3 subtype: unspecified whether 3a or 3b Qualified Code(s): N18.30 - Chronic kidney disease, stage 3 unspecified Code(s): N18.9 - Chronic kidney disease, unspecified Status: Chronic Assessment and Plan: Baseline Cr around 1.5-1.8 range. Creatinine appears to be at baseline Monitor urine output, electrolytes and creatinine (5) Type 2 diabetes mellitus: Qualifiers: Chronic kidney disease stage: stage 3 (moderate) Chronic kidney disease stage 3 subtype: unspecified whether 3a or 3b Diabetes mellitus complication detail: with chronic kidney disease Diabetes mellitus complication status: with kidney complications Diabetes mellitus extermination supervisor insulin use: without extermination supervisor use Qualified Code(s): E11.22 - Type 2 diabetes mellitus with diabetic chronic kidney disease; N18.30 - Chronic kidney disease, stage 3 unspecified Code(s): E11.9 - Type 2 diabetes mellitus without complications Status: Chronic Assessment and Plan: A1c 6.6 in April. The patient's blood glucose was reviewed on 06/30 Glucose remains well controlled. Continue AccuCheks covering with sliding scale. Hypoglycemia protocol available as needed. Continue to monitor (6) Hypothyroidism: Code(s): E03.9 - Hypothyroidism, unspecified Status: Acute Assessment and Plan: TSH normal in April. Continue levothyroxine Plan DVT prophylaxis -apixaban Code Status - Full Code Subjective Date/time seen: 06/30/24 15:01 Interval history: 68yo male with CHF, CAD, CKD, pAFib, DM and HTN here for shortness of breath. Assuming care. Chart reviewed. SOB better. no CP. Slept off and on last night. Eating well. No n/v. Exam Narrative: AF 96.8 111/79 85 22 94% 4L Gen - NARD Chest - bibasilar crackles. CV - RRR S1/S2, elevated JVP. Tele showing PVCs and brief NSVT Abd - Soft, NT/ND, Positive BS Ext - trace pedal cliff
[2024-06-30 16:42] LABS: Glucose Point of Care 181 mg/dl (65-105)
[2024-06-30 21:14] LABS: Glucose Point of Care 161 mg/dl (65-105)
[2024-06-30] MEDS: allopurinoL 100 MG TABLET 200 MG PO (21:17)
[2024-06-30] MEDS: ATORVASTATIN 10 MG TABLET PO (21:18)
--- NOTE | 2024-06-30 21:29 | PC.NURSE ---
This patient, Lance Gray, was transferred to [facility] on 06/30/24 at 2106. Personal belongings sent with patient. Report given to Falguni Armas RN. Appropriate documentation sent with patient.
[2024-07-01] VITALS (20 sets, daily range): BP systolic 90–104; BP diastolic 61–75; PULSE 58–92; RESP 18–19; TEMP 36.3–36.8; O2SAT 90–96
[2024-07-01 05:12] LABS: Basophils Absolute Auto 0.1 K/mm3 (0.0-0.1); Eosinophils Absolute Auto 0.3 K/mm3 (0-0.3); Eosinophils Percent Auto 4.6 % (0-4.4); Hematocrit 41.2 % (42.0-52.0); Hemoglobin 13.2 g/dL (14.0-18.0); Immature Granulocyte Absolute 0.03 K/mm3 (0.00-0.031); Immature Granulocyte Percent A 0.4 % (0-0.5); Lymphocytes Absolute Auto 1.05 K/mm3 (0.9-3.2); Lymphocytes Percent Auto 15.4 % (18.3-44.2); Mean Corpuscular Hemoglobin 30.6 pg (26-34); Mean Corpuscular Volume 95.4 fl (80-100); Mean Platelet Volume 10.4 fl (7.4-10.4); Monocytes Absolute Auto 0.8 K/mm3 (0.1-0.6); Monocytes Percent Auto 11.3 % (2.6-8.5); Neutrophils Absolute Auto 4.6 K/mm3 (1.3-6.7); Neutrophils Percent Auto 67.3 % (45.5-73.1); Platelet Count Result 195 k/mm3 (150-375); Red Blood Count 4.32 M/mm3 (4.6-6.20); Red Cell Distribution Width 15.9 % (11.5-14.5); White Blood Count 6.8 K/mm3 (4.5-10.0)
[2024-07-01 05:31] LABS: Alanine Aminotransferase 23 U/L (6-50); Albumin Level 4.2 g/dL (3.5-5.1); Alkaline Phosphatase 124 U/L (38-126); Anion Gap 14 mmol/L (4-12); Aspartate Amino Transferase 31 U/L (17-59); Blood Urea Nitrogen 37 mg/dL (9-20); Calcium 8.9 mg/dL (8.4-10.2); Carbon Dioxide 25 mmol/L (22-30); Chloride 99 mmol/L (98-107); Estimated CRCL calculation 40 ml/min; Estimated Glomerular Filt Rate 41; Glucose 126 mg/dL (65-110); Magnesium 2.2 mg/dL (1.6-2.3); Phosphorus 4.5 mg/dL (2.5-4.5); Potassium 3.6 mmol/L (3.4-5.0); Sodium 138 mmol/L (137-145)
[2024-07-01] MEDS: AMIODARONE HCL 200 MG TABLET 400 MG PO ×3 (06:09→20:41)
[2024-07-01] MEDS: LEVOTHYROXINE SODIUM 88 MCG TABLET PO (06:12)
[2024-07-01] MEDS: FUROSEMIDE INJ 40 MG/4 ML VIAL IV PUSH (08:23)
[2024-07-01] MEDS: ASPIRIN 81 MG ENTERIC TABLET PO (08:23)
[2024-07-01] MEDS: APIXABAN 5 MG TABLET PO ×2 (08:24→20:40)
[2024-07-01] MEDS: SITagliptin PHOSPHATE 100 MG TABLET PO (08:24)
[2024-07-01] MEDS: DICLOFENAC SODIUM 1% 100 GM GEL (*BKC) 1 APPLIC TOPICAL (08:24)
[2024-07-01] MEDS: EMPAGLIFLOZIN 25 MG TABLET PO (08:24)
[2024-07-01] MEDS: glipiZIDE 5 MG TABLET PO ×2 (08:24→20:41)
[2024-07-01 08:25] LABS: Glucose Point of Care 129 mg/dl (65-105)
[2024-07-01 08:43] LABS: Bilirubin Indirect 2.2 mg/dL (0-1.1)
[2024-07-01 11:21] LABS: Glucose Point of Care 218 mg/dl (65-105)
[2024-07-01] MEDS: INSULIN ASPART (*BKC) 100 UNITS/ML SUB-Q (11:43)
--- NOTE | 2024-07-01 12:06 | PM.PNCARD ---
Progress Note: A&P Assessment and Plan (1) Atrial flutter with rapid ventricular response: Code(s): I48.92 - Unspecified atrial flutter Status: Acute (2) CHF exacerbation: Code(s): I50.9 - Heart failure, unspecified Status: Acute (3) Cardiomyopathy: Code(s): I42.9 - Cardiomyopathy, unspecified Status: Acute Plan 68-year-old man with chronic ischemic cardiomyopathy, remote history of bypass grafting and previous infarction. He is doing better today after zoroastrianism of sinus rhythm. Have him on an oral loading dose of amiodarone. This should be continued and not discontinued in the future because of abnormal TSH level. His arrhythmias are very poorly tolerated in the setting of very low ejection fraction and this is much more important issue than his TSH level. We will resume Entresto starting this evening and will start low-dose metoprolol succinate at this time in place of carvedilol. This would be a affective treatment for both his low ejection fraction as well as his atrial tachyarrhythmias in combination with the amiodarone. Expect him to potentially be able to discharge in the next 24-48 hours if he is stable. We will be reducing his amiodarone to maintenance dosage at the time of discharge Cornell Wild MD [facility] Subjective Date/time seen: Date of service: 07/01/24 12:06 Interval history: Follow-up visit in this 68-year-old man with: Coronary artery disease remote history of surgical revascularization and longstanding ischemic cardiomyopathy. He presented to the hospital with recurrent atrial flutter with RVR not surprisingly was hemodynamically not well tolerated. He is doing better today maintaining sinus rhythm and has been started on oral loading dose of amiodarone. Telemetry demonstrates sinus with some PVCs. No hypotension. Discussed with the patient the need for resuming GDMT for his low ejection fraction Exam Const: General: comfortable and no acute distress HENMT: Mouth: Yes moist mucous membranes Eyes: Sclera: sclerae normal Neck: Neck: supple and no JVD Resp: Effort & Inspection: normal respiratory effort Other: Scant basilar crackles are noted, better than yesterday Cardio: Rate: regular rate Rhythm: regular rhythm Other: PMI laterally displaced no audible murmur GI: GI Palp: Yes Soft to palpation Auscultation: normal bowel sounds Skin: General skin exam: normal color Neuro: Other: Alert and oriented x3 Extrem: General: normal to inspection Other: Adequate perfusion, no significant edema Objective Data Vital Signs Vital Signs: Vital Signs - 24 hr 06/30/24 14:00 06/30/24 14:00 06/30/24 15:06 Temperature Pulse Rate 84 85 85 Respiratory Rate 22 H Blood Pressure 111/79 Pulse Oximetry 94 Oxygen Delivery Oxygen Flow Rate Fraction of Inspired Oxygen 06/30/24 16:00 06/30/24 16:00 06/30/24 16:00 Temperature 36.6 C Pulse Rate 87 87 Respiratory Rate 17 Blood Pressure 122/80 Pulse Oximetry 95 95 Oxygen Delivery Nasal Cannula Oxygen Flow Rate 4 Fraction of Inspired Oxygen 06/30/24 18:00 06/30/24 18:00 06/30/24 20:00 Temperature Pulse Rate 87 87 Respiratory Rate 21 H Blood Pressure Pulse Oximetry 90 Oxygen Delivery Nasal Cannula Oxygen Flow Rate 4 Fraction of Inspired Oxygen 06/30/24 20:00 06/30/24 20:00 06/30/24 21:17 Temperature 37.0 C Pulse Rate 86 84 91 Respiratory Rate 34 H Blood Pressure 111/90 Pulse Oximetry 91 Oxygen Delivery Oxygen Flow Rate Fraction of Inspired Oxygen 06/30/24 22:00 07/01/24 00:00 07/01/24 00:00 Temperature 36.5 C Pulse Rate 82 92 78 Respiratory Rate 18 Blood Pressure 100/69 Pulse Oximetry 96 Oxygen Delivery Oxygen Flow Rate Fraction of Inspired Oxygen 07/01/24 02:00 07/01/24 04:00 07/01/24 04:00 Temperature 36.6 C Pulse Rate 79 79 Respiratory Rate
--- NOTE | 2024-07-01 13:01 | PM.IMPN ---
Progress Note: A&P Assessment and Plan (1) Acute exacerbation of CHF (congestive heart failure): Qualifiers: Heart failure type: combined systolic and diastolic Qualified Code(s): I50.43 - Acute on chronic combined systolic (congestive) and diastolic (congestive) heart failure Code(s): I50.9 - Heart failure, unspecified Status: Acute Assessment and Plan: Patient has chronic systolic and diastolic CHF secondary to ischemic cardiomyopathy. BNP 2680. CXR Showing diffuse interstitial pattern and cardiomegaly EKG showed atrial flutter (163) with right bundle branch block and possible old inferior NV Echo: 4 chamber dilation, severe LV/RV systolic dysfxn with EF 20-25%, Grade I diastolic dysfxn, biatrial dilation, mild MR, mod TR Appears to have decompensated secondary to atrial flutter Started IV lasix. UOP 3550 -> 1900mL so far today. Clinical improved Repeat CXR showing stable interstitial opacities mid and lower lung zones Empagliflozin was continued. Entresto resumed. Coreg changed to Toprol XL and added. Continue IV lasix with parameters as BP has become soft. . Continue to monitor (2) Atrial flutter with rapid ventricular response: Code(s): I48.92 - Unspecified atrial flutter Status: Acute Assessment and Plan: Patient has history of proximal AFib and presented with Aflutter with RVR. He converted to sinus rhythm with IV metoprolol once in the ED P.r.n. IV metoprolol ordered We continued home apixaban. Amiodarone added. Monitor on tele. (3) Hypotension: Qualifiers: Hypotension type: unspecified hypotension type Qualified Code(s): I95.9 - Hypotension, unspecified Code(s): I95.9 - Hypotension, unspecified Status: Acute Assessment and Plan: Patient had borderline blood pressure since conversion sinus rhythm. He received fluid bolus in ED for soft BP He has not required any vasopressors or IV fluid bolus since being in the ED His lactic acid level and procalcitonin level were normal BP was stable but softer now felt related to his cardiac disease and treatment. As above. Follow (4) CKD (chronic kidney disease): Qualifiers: Chronic kidney disease stage: stage 3 (moderate) Chronic kidney disease stage 3 subtype: unspecified whether 3a or 3b Qualified Code(s): N18.30 - Chronic kidney disease, stage 3 unspecified Code(s): N18.9 - Chronic kidney disease, unspecified Status: Chronic Assessment and Plan: Baseline Cr around 1.5-1.8 range. Creatinine appears to be at baseline Monitor urine output, electrolytes and creatinine (5) Type 2 diabetes mellitus: Qualifiers: Chronic kidney disease stage: stage 3 (moderate) Chronic kidney disease stage 3 subtype: unspecified whether 3a or 3b Diabetes mellitus complication detail: with chronic kidney disease Diabetes mellitus complication status: with kidney complications Diabetes mellitus detention insulin use: without detention use Qualified Code(s): E11.22 - Type 2 diabetes mellitus with diabetic chronic kidney disease; N18.30 - Chronic kidney disease, stage 3 unspecified Code(s): E11.9 - Type 2 diabetes mellitus without complications Status: Chronic Assessment and Plan: A1c 6.6 in April. The patient's blood glucose was reviewed on 07/01 Glucose remains mostly well controlled. Continue AccuCheks covering with sliding scale. Hypoglycemia protocol available as needed. Continue to monitor (6) Hypothyroidism: Code(s): E03.9 - Hypothyroidism, unspecified Status: Acute Assessment and Plan: TSH normal in April. Continue levothyroxine Plan Hyperbili - Appears to be all indirect. Suspect Ashlyn. Disp - PT/OT DVT prophylaxis -apixaban Code Status - Full Code Subjective Date/time seen: 07/01/24 13:01 Interval history: 68yo male with CHF, CAD, CKD, pAFib, DM and HTN here for shortness of breath
[2024-07-01] MEDS: METOPROLOL SUCCINATE EXT REL 25 MG TABCR PO (13:16)
[2024-07-01 16:34] LABS: Glucose Point of Care 146 mg/dl (65-105)
[2024-07-01] MEDS: allopurinoL 100 MG TABLET 200 MG PO (20:40)
[2024-07-01] MEDS: SACUBITRIL/VALSARTAN 24-26 MG TABLET 1 TAB PO (20:40)
[2024-07-01] MEDS: ATORVASTATIN 10 MG TABLET PO (20:40)
[2024-07-01 20:55] LABS: Glucose Point of Care 163 mg/dl (65-105)
[2024-07-02] VITALS (13 sets, daily range): BP systolic 94–101; BP diastolic 58–72; PULSE 50–67; RESP 18–20; TEMP 36–36.4; O2SAT 88–97
[2024-07-02 04:50] LABS: Albumin Level 4.2 g/dL (3.5-5.1); Anion Gap 12 mmol/L (4-12); Blood Urea Nitrogen 46 mg/dL (9-20); Calcium 8.7 mg/dL (8.4-10.2); Carbon Dioxide 26 mmol/L (22-30); Chloride 98 mmol/L (98-107); Estimated CRCL calculation 41 ml/min; Estimated Glomerular Filt Rate 36; Glucose 113 mg/dL (65-110); Potassium 3.4 mmol/L (3.4-5.0); Sodium 136 mmol/L (137-145)
[2024-07-02] MEDS: AMIODARONE HCL 200 MG TABLET 400 MG PO (06:38)
[2024-07-02] MEDS: LEVOTHYROXINE SODIUM 88 MCG TABLET PO (06:38)
[2024-07-02 09:05] LABS: Glucose Point of Care 125 mg/dl (65-105)
[2024-07-02] MEDS: glipiZIDE 5 MG TABLET PO (09:14)
[2024-07-02] MEDS: ASPIRIN 81 MG ENTERIC TABLET PO (09:14)
[2024-07-02] MEDS: SITagliptin PHOSPHATE 100 MG TABLET PO (09:14)
[2024-07-02] MEDS: APIXABAN 5 MG TABLET PO (09:14)
[2024-07-02] MEDS: EMPAGLIFLOZIN 25 MG TABLET PO (09:15)
[2024-07-02] MEDS: SACUBITRIL/VALSARTAN 24-26 MG TABLET 1 TAB PO (09:15)
[2024-07-02] MEDS: METOPROLOL SUCCINATE EXT REL 25 MG TABCR PO (09:15)
[2024-07-02 11:22] LABS: Glucose Point of Care 245 mg/dl (65-105)
[2024-07-02] MEDS: INSULIN ASPART (*BKC) 100 UNITS/ML SUB-Q (12:20)
[2024-07-02] MEDS: FUROSEMIDE INJ 40 MG/4 ML VIAL IV PUSH (12:20)
--- NOTE | 2024-07-02 14:00 | PM.IMPN ---
Progress Note: A&P Assessment and Plan (1) Acute exacerbation of CHF (congestive heart failure): Qualifiers: Heart failure type: combined systolic and diastolic Qualified Code(s): I50.43 - Acute on chronic combined systolic (congestive) and diastolic (congestive) heart failure Code(s): I50.9 - Heart failure, unspecified Status: Acute Assessment and Plan: Patient has chronic systolic and diastolic CHF secondary to ischemic cardiomyopathy. BNP 2680. CXR Showing diffuse interstitial pattern and cardiomegaly EKG showed atrial flutter (163) with right bundle branch block and possible old inferior [place] Echo: 4 chamber dilation, severe LV/RV systolic dysfxn with EF 20-25%, Grade I diastolic dysfxn, biatrial dilation, mild MR, mod TR Appears to have decompensated secondary to atrial flutter Started IV lasix. UOP 3550 -> 1900mL so far today. Clinical improved Repeat CXR showing stable interstitial opacities mid and lower lung zones Empagliflozin was continued. Entresto resumed. Coreg changed to Toprol XL and added. Continue IV lasix with parameters as BP has become soft. . Continue to monitor (2) Atrial flutter with rapid ventricular response: Code(s): I48.92 - Unspecified atrial flutter Status: Acute Assessment and Plan: Patient has history of proximal AFib and presented with Aflutter with RVR. He converted to sinus rhythm with IV metoprolol once in the ED P.r.n. IV metoprolol ordered We continued home apixaban. Amiodarone added. Monitor on tele. (3) Hypotension: Qualifiers: Hypotension type: unspecified hypotension type Qualified Code(s): I95.9 - Hypotension, unspecified Code(s): I95.9 - Hypotension, unspecified Status: Acute Assessment and Plan: Patient had borderline blood pressure since conversion sinus rhythm. He received fluid bolus in ED for soft BP He has not required any vasopressors or IV fluid bolus since being in the ED His lactic acid level and procalcitonin level were normal BP was stable but softer now felt related to his cardiac disease and treatment. As above. Follow (4) CKD (chronic kidney disease): Qualifiers: Chronic kidney disease stage: stage 3 (moderate) Chronic kidney disease stage 3 subtype: unspecified whether 3a or 3b Qualified Code(s): N18.30 - Chronic kidney disease, stage 3 unspecified Code(s): N18.9 - Chronic kidney disease, unspecified Status: Chronic Assessment and Plan: Baseline Cr around 1.5-1.8 range. Creatinine appears to be at baseline Monitor urine output, electrolytes and creatinine (5) Type 2 diabetes mellitus: Qualifiers: Diabetes mellitus terminal clerk insulin use: without mcc use Diabetes mellitus complication status: with kidney complications Diabetes mellitus complication detail: with chronic kidney disease Chronic kidney disease stage: stage 3 (moderate) Chronic kidney disease stage 3 subtype: unspecified whether 3a or 3b Qualified Code(s): E11.22 - Type 2 diabetes mellitus with diabetic chronic kidney disease; N18.30 - Chronic kidney disease, stage 3 unspecified Code(s): E11.9 - Type 2 diabetes mellitus without complications Status: Chronic Assessment and Plan: A1c 6.6 in April. The patient's blood glucose was reviewed on 07/01 Glucose remains mostly well controlled. Continue AccuCheks covering with sliding scale. Hypoglycemia protocol available as needed. Continue to monitor (6) Hypothyroidism: Code(s): E03.9 - Hypothyroidism, unspecified Status: Acute Assessment and Plan: TSH normal in April. Continue levothyroxine Plan Hyperbili - Appears to be all indirect. Suspect Ashlyn. Disp - PT/OT DVT prophylaxis -apixaban Code Status - Full Code Subjective Date/time seen: 07/02/24 14:00 Interval history: 68yo male with CHF, CAD, CKD, pAFib, DM and HTN here for shortness of breath
--- NOTE | 2024-07-02 14:00 | PM.PNCARD ---
Progress Note: A&P Assessment and Plan (1) Atrial flutter with rapid ventricular response: Code(s): I48.92 - Unspecified atrial flutter Status: Acute (2) CHF exacerbation: Code(s): I50.9 - Heart failure, unspecified Status: Acute (3) Cardiomyopathy: Code(s): I42.9 - Cardiomyopathy, unspecified Status: Acute Plan 68-year-old man with chronic ischemic cardiomyopathy, remote history of bypass grafting and previous infarction. He is doing better today after temple of sinus rhythm. Have him on an oral loading dose of amiodarone. This should be continued and not discontinued in the future because of abnormal TSH level. His arrhythmias are very poorly tolerated in the setting of very low ejection fraction and this is much more important issue than his TSH level. We will resume Entresto starting this evening and will start low-dose metoprolol succinate at this time in place of carvedilol. This would be a affective treatment for both his low ejection fraction as well as his atrial tachyarrhythmias in combination with the amiodarone. He is mildly bradycardic but is asymptomatic so I am not going to make any dose adjustments to his medications at this time. He is feeling well today and stable for discharge from a cardiac perspective. Continue Entresto 24-26mg b.i.d. Continue Jardiance 25mg daily Continue Toprol XL 25mg daily Continue amiodarone 200mg daily Continue furosemide 40mg p.o. daily Will arrange for close outpatient follow up in our office. Subjective Date/time seen: 07/02/24 14:00 Interval history: Follow-up visit in this 68-year-old man with: Coronary artery disease remote history of surgical revascularization and longstanding ischemic cardiomyopathy. He presented to the hospital with recurrent atrial flutter with RVR not surprisingly was hemodynamically not well tolerated. He is doing better today maintaining sinus rhythm and has been started on oral loading dose of amiodarone. Telemetry demonstrates sinus with some PVCs. No hypotension. Discussed with the patient the need for resuming GDMT for his low ejection fraction Date of service 07/02/2024: He is feeling well today still maintaining sinus rhythm. He is breathing comfortably on room air and denies any orthopnea last night. Review of Systems Constitutional: Constitutional: Reports lethargy Eyes: Eyes: Reports no additional eye complaints ENT: Reports system reviewed and no additional complaints, except as documented Cardiovascular: Cardiovascular: Reports as per HPI and Reports dyspnea on exertion Respiratory: Respiratory: Reports dyspnea on exertion Gastrointestinal: Gastrointestinal: Reports no additional gastrointestinal complaints Musculoskeletal: Musculoskeletal: Reports no additional musculoskeletal complaints Integumentary/Breasts: Skin/Breast: Reports system reviewed and no additional complaints, except as docu Neurologic: Reports system reviewed and no additional complaints, except as documented Endocrine: Endocrine: Reports no additional endocrine complaints Hematologic/Lymphatic: Hematologic/Lymphatic: Reports no additional hematologic/lymphatic complaints Allergic/Immunologic: Allergic/Immunologic: Reports no additional allergic/immunologic complaints Exam Const: General: comfortable and no acute distress Other: Well-developed well-nourished white male appearing his stated age relatively comfortable in appearance no obvious distress HENMT: Mouth: Yes moist mucous membranes Eyes: Sclera: sclerae normal Neck: Neck: supple and no JVD Resp: Effort & Inspection: normal respiratory effort Auscultation: crackles (R base) and no rales Cardio: Rate: regular rate Rhythm: regular rhythm Other: PMI laterally displaced no audible murmur GI: Auscultation: normal bowel sounds Skin: General skin exam: normal color Neuro: Other: Alert and oriented x3 Extrem: Gener
[2024-07-02] MEDS: POTASSIUM CHLORIDE 20 MEQ ER TABLET 40 MEQ PO (16:00)
[2024-07-02 17:29] LABS: Glucose Point of Care 165 mg/dl (65-105)
--- NOTE | 2024-07-02 17:29 | PM.DS ---
DS: Admitting Diagnosis Discharge Date 07/02/24 Admitting Diagnosis Shortness of breath. DS: Discharge Diagnosis Discharge Diagnosis (1) Acute exacerbation of CHF (congestive heart failure): Qualifiers: Heart failure type: combined systolic and diastolic Qualified Code(s): I50.43 - Acute on chronic combined systolic (congestive) and diastolic (congestive) heart failure Code(s): I50.9 - Heart failure, unspecified Status: Acute (2) Atrial flutter with rapid ventricular response: Code(s): I48.92 - Unspecified atrial flutter Status: Acute (3) Hypotension: Qualifiers: Hypotension type: unspecified hypotension type Qualified Code(s): I95.9 - Hypotension, unspecified Code(s): I95.9 - Hypotension, unspecified Status: Acute (4) CKD (chronic kidney disease): Qualifiers: Chronic kidney disease stage: stage 3 (moderate) Chronic kidney disease stage 3 subtype: unspecified whether 3a or 3b Qualified Code(s): N18.30 - Chronic kidney disease, stage 3 unspecified Code(s): N18.9 - Chronic kidney disease, unspecified Status: Chronic (5) Type 2 diabetes mellitus: Qualifiers: Diabetes mellitus termite treater helper insulin use: without group home use Diabetes mellitus complication status: with kidney complications Diabetes mellitus complication detail: with chronic kidney disease Chronic kidney disease stage: stage 3 (moderate) Chronic kidney disease stage 3 subtype: unspecified whether 3a or 3b Qualified Code(s): E11.22 - Type 2 diabetes mellitus with diabetic chronic kidney disease; N18.30 - Chronic kidney disease, stage 3 unspecified Code(s): E11.9 - Type 2 diabetes mellitus without complications Status: Chronic (6) Hypothyroidism: Code(s): E03.9 - Hypothyroidism, unspecified Status: Acute DS: Summary Hospital Course Reason for hospitalization: 68yo male with CHF, CAD, CKD, pAFib, DM and HTN here for shortness of breath. Please see H&P for details. Hospital Course: Patient has chronic systolic and diastolic CHF secondary to ischemic cardiomyopathy. BNP 2680. CXR showing diffuse interstitial pattern and cardiomegaly. EKG showed atrial flutter (163) with right bundle branch block and possible old inferior SD. Echo: 4 chamber dilation, severe LV/RV systolic dysfxn with EF 20-25%, Grade I diastolic dysfxn, biatrial dilation, mild MR, mod TR. [place] he had decompensated heart failure secondary to atrial flutter. His home medications lists AMiodarone but he has been of this for about 1 year. He converted to sinus rhythm with IV metoprolol once in the ED. We continued home apixaban. Amiodarone added. Started IV lasix. Excellent UOP. Repeat CXR showing stable interstitial opacities mid and lower lung zones. Empagliflozin was continued. Entresto resumed. Coreg changed to Toprol XL. Patient with CKD with baseline Cr around 1.5-1.8 range. Creatinine remained stable. A1c 6.6 in April. The patient's blood glucose was monitored with AccuCheks covering with sliding scale. Hypoglycemia protocol was available as needed. Patient with chronic hyperbili that appears to be all indirect. Suspect Ashlyn. He had clincial improvement. He was able to be discharged home on 07/02/24 Status at Discharge Cognitive/behavioral status at discharge: stable Time Spent with Patient Time attestation: Total time spent providing and/or coordinating discharge services: 35 minutes Time spent: Greater than 30 minutes Exam Narrative: AF96.8 98/58 56 20 97% ra Gen - NARD Chest - mild bibasilar crackles with improved air exchange. CV - RRR S1/S2. Tele showing NSR with mild bradycardia Abd - Soft, NT/ND, Positive BS Ext - no pedal edema Psych - Nml mood and affect Skin - Warm and dry DS: Data Data Completed and Pending Labs on day of discharge: Labs from last 24 hours 07/02/24 07/02/24 07/02/24 11:13 07:28 04:03 Sodium 136 L Po
== END 2024-07-02 19:15 | disposition home or self-care (01) | DRG 291 ==
LOC: ANHED 12:47 → ANHICU 14:58 → ANHIMU 06-30 21:31
PROVIDERS: Internal Medicine; Student in an Organized Health Care Education/Training Program; Admitting Provider General Practice; Emergency Provider Emergency Medicine; PCP Family Medicine; Visit Provider Internal Medicine
DX: I13.0 Hypertensive heart and chronic kidney disease with heart failure and stage 1 through stage 4 chronic kidney disease, or unspecified chronic kidney disease (principal); I50.43 Acute on chronic combined systolic (congestive) and diastolic (congestive) heart failure; I48.92 Unspecified atrial flutter; I25.5 Ischemic cardiomyopathy; N18.30 Chronic kidney disease, stage 3 unspecified; E11.22 Type 2 diabetes mellitus with diabetic chronic kidney disease; I48.0 Paroxysmal atrial fibrillation; E03.9 Hypothyroidism, unspecified; I25.10 Atherosclerotic heart disease of native coronary artery without angina pectoris; I95.9 Hypotension, unspecified; E78.5 Hyperlipidemia, unspecified; E66.9 Obesity, unspecified; Z68.31 Body mass index [BMI] 31.0-31.9, adult; Z79.01 Long term (current) use of anticoagulants; Z79.82 Long term (current) use of aspirin; Z90.49 Acquired absence of other specified parts of digestive tract; Z95.1 Presence of aortocoronary bypass graft; Z87.891 Personal history of nicotine dependence; I25.2 Old myocardial infarction
CPT/HCPCS: 36415; 71045; 71046; 80053; 80069; 81001; 82948; 83605; 83735; 83880; 84100; 84145; 84484; 85025; 85027; 85610; 85730; 87641; 93005; 96361; 96374; 97161; 97165; 99285; A9270; C8929; G0378; J1815; J1940; J7040; Q9957